=== PATIENT | male | born 1955 | race Caucasian/White ===

== ENCOUNTER 2023-04-03 12:40 | Inpatient (IN) ==
[2023-04-03 16:18] VITALS: BMI 25.8
[2023-04-03] MEDS ORDERED: LR 1,000 ML IV 1,000 ML IV ONE (16:26)
[2023-04-03 16:34] LABS: BASOPHILS # (AUTO) 0.1 X10^3/uL (0.0-0.1); BASOPHILS % (AUTO) 0.6 % (0.2-1.0); EOSINOPHILS # (AUTO) 0.3 x10^3/uL (0.0-0.2); EOSINOPHILS % (AUTO) 2.3 % (0.9-2.9); HEMOGLOBIN 13.3 g/dL (13.5-18.0); LYMPHOCYTES # (AUTO) 3.7 X10^3/uL (1.3-2.9); LYMPHOCYTES % (AUTO) 30.5 % (21.0-51.0); MEAN CORPUSCULAR HGB CONC 33.1 g/dL (33.0-35.0); MEAN CORPUSCULAR VOLUME 90.5 fL (80.0-100.0); MEAN PLATELET VOLUME 8.9 fL (7.4-11.0); MONOCYTES # (AUTO) 0.9 x10^3/uL (0.3-0.8); MONOCYTES % (AUTO) 7.1 % (0.0-13.0); NEUTROPHILS # (AUTO) 7.2 x10^3/uL (2.2-4.8); NEUTROPHILS % (AUTO) 59.5 % (42.0-75.0); PLATELET COUNT 248 X10^3/uL (150.0-450.0); RED BLOOD COUNT 4.42 X10^6/uL (4.7-6.0); RED CELL DISTRIBUTION WIDTH 13.7 % (11.6-16.5); WHITE BLOOD COUNT 12.1 X10^3/uL (3.6-10.0)
[2023-04-03] MEDS: LR 1,000 ML IV 1,000 ML IV SCH (16:35)
[2023-04-03 16:53] LABS: ALANINE AMINOTRANSFERASE 12 Units/L (12-78); ALBUMIN 3.4 g/dL (3.4-5.0); ALKALINE PHOSPHATASE 75 Units/L (46-116); ASPARTATE AMINO TRANSFERASE 13 Units/L (15-37); BLOOD UREA NITROGEN 19 mg/dL (7-18); CALCIUM 8.9 mg/dL (8.5-10.1); CHLORIDE 101 mmol/L (98-107); COR NA(FOR HYPERGLY) 141 mmol/L (136-145); CREATININE 1.07 mg/dL (0.70-1.30); GLUCOSE 205 mg/dL (65-99); POTASSIUM 3.7 mmol/L (3.5-5.1); SODIUM 138 mmol/L (136-145); TOTAL PROTEIN 6.7 g/dL (6.4-8.2); eGFR NON BLACK RACES > 60 (>60)
[2023-04-03] MEDS ORDERED: PROVENTIL NEB TX 0.083% 2.5MG/ 3ML NEB PRN (16:59)
[2023-04-03] MEDS ORDERED: CONSULT PHARMACY - POTASSIUM & MAGNESIUM XX SCH (17:00)
[2023-04-03] MEDS ORDERED: OMNIPAQUE 350 mg/mL 100 mL BTL 100 ML ONE (17:30)
[2023-04-03] MEDS ORDERED: NS 100 ML IV 100 ML ONE (17:30)
[2023-04-03] MEDS ORDERED: OMNIPAQUE 350 mg/mL 50 mL BTL 50 ML ONE (17:34)
[2023-04-03] MEDS ORDERED: NS 500 ML IV 0 ML IV ONE (19:15)
[2023-04-03] MEDS: MAGNESIUM SULFATE 1 GRAM/100 mL PREMIX 1 G/100 ML BAG IV SCH ×2 (19:19→20:12)
--- NOTE | 2023-04-03 19:25 | CT ---
HISTORYno circulation in feetSTUDYCTA AORTA WITH RUNOFFCOMPARISONTECHNIQUEMultiple axial images of the abdomen and pelvis were obtained from the mesenteric vasculature to the plantar surface of the feet both prior to and after the administration of IV contrast. 3D reconstructions were performed utilizing radial maximum intensity projection imaging. Dose reduction techniques including Automated Exposure Control (AEC) and adjustment of mA and kV were utilized.FINDINGSThe lung bases are grossly clear without effusion. There is fairly severe atherosclerosis in the left main, lad, and RCA. The liver, gallbladder, pancreas, spleen, adrenal glands, and kidneys are grossly normal. There are small nonobstructing stones in both kidneys with the largest stone on the left side measuring at 3 mm. The stomach and small bowel and appendix are normal. The large bowel loops are grossly unremarkable. Urinary bladder and prostate are normal.Abdominal aorta: There is disease in the celiac trunk but no flow limiting stenosis. There is heavy disease at the origin of the SMA but probably less than 50 percent stenosis. There is heavy plaque throughout the proximal 7 cm of the SMA. There is heavy plaque at the origin of the renal artery bilaterally, left worse than right where there appears to be approximately 65 percent stenosis.Infrarenal abdominal aorta: There is severe heterogeneous plaque in infrarenal abdominal aorta but less than 50 percent stenosis.Common iliac arteries: There is severe plaque in the common iliac arteries bilaterally, especially on the right side. The degree of stenosis is difficult to evaluate given the dense calcific plaque but is suspected to be greater than 50 percent.External iliac arteries: The severe disease continues into the external iliac arteries bilateral with areas bilaterally which appear to have greater than 50 percent stenosis. There is an area in the left external iliac with soft plaque causing high-grade stenosis.Common femoral arteries: Severe disease bilaterally.Superficial femoral arteries: Diffuse disease in the SFA bilaterally. There appears to be an extensive stent in right SFA covering approximately 11 cm length. The stent does appear to be patentPopliteal arteries: Severe multifocal disease bilaterally but the vessels are patent.Tibial vasculature: Severe disease throughout the calf bilaterally. The best flow is in the anterior tibial arteries bilaterally followed by the peroneal arteries, right better than left. The left posterior tibial artery is occluded. The flow in the right posterior tibial artery is fairly weak.IMPRESSION1. A severe multifocal disease involving large, medium, and small arteries with foci of compromise potentially in the aorta as well as the common and external iliac arteries, SFA, popliteal, and tibial arteries. 2. Approximately 65 percent stenosis in the left renal artery.Electronically signed by: Freddy Vallejo (Apr 03, 2023 19:24:07)
[2023-04-03] MEDS: ZANAFLEX PO PRN (19:45)
[2023-04-03] MEDS: VISTARIL PO SCH (21:11)
[2023-04-03] MEDS: K-RIDER 10 MEQ/NS 100 ML 10 MEQ/100 ML BAG IV SCH ×2 (21:11→22:25)
[2023-04-03] MEDS: NEURONTIN TAB 600 MG PO SCH (21:11)
[2023-04-03] MEDS: ULTRAM PO SCH (21:12)
[2023-04-03] MEDS ORDERED: NS 500 ML IV 500 ML IV PRN (21:14)
[2023-04-03] MEDS: SUBOXONE FILM SL SCH (23:42)
--- NOTE | 2023-04-03 23:48 | DR.H&P ---
H&P History & Physical for Day of: H&P Date: 04/03/23 Chief Complaint Chief Complaint: Non -healing wounds to right heel and right ankle. Allergies Allergies Allergy/AdvReac Type Severity Reaction Status Date / Time metformin Allergy Verified 07/31/18 14:33 History of Present Illness History of Present Illness: 67 year old male with history of diabetes and neuropathy with non-healing wounds to the right heel and right ankle. The patient also complains of rest pain of both legs . Pain of both calves is augmented significantly by walking. He does walk around the house but otherwise he uses a wheelchair. He needs his legs to help with activities of daily livin g. Patient with chronic pain on Suboxone . Past Medical History Past Medical History: COPD (The patient continues to smoke cigarettes and has over 50 years greater than 1 pack per day ), Coronary Artery Disease (patient gives a history of myocardial infarction in the past but they are unable to place a stent. He was treated medically since then, 2014. He denies chest pain or shortness of breath. ), CVA (Transient ischemic attacks 2019. None since then was initially treated with Plavix. No longer on Plavix. ), Diabetes, Hypertension and SD Additional Medical History: History of arterial stent placed right superficial femoral artery in the past Past Surgical History Surgical History: Ortho Surgery, Tonsillectomy and Other Family History Family Medical History: Cancer Social History Does patient currently use any type of tobacco product: Yes Have you used tobacco products in the last 12 months: Yes Type of Tobacco Use: Cigarettes How many years tobacco product used: 53 Does any household member use tobacco: Yes Alcohol Use: None Drug Use: None Medications Home Medications: Home Medications Medication Instructions Recorded Confirmed Type gabapentin 800 mg tablet 800 mg PO TID 07/31/18 04/03/23 History hydroxyzine HCl 50 mg tablet 50 mg PO Q6H PRN 07/31/18 04/03/23 History buprenorphine 2 mg-naloxone 0.5 mg 1 ea sublingual TID 04/03/23 04/03/23 History sublingual film fenofibrate nanocrystallized 145 145 mg PO QDAY 04/03/23 04/03/23 History mg tablet insulin degludec 100 unit/mL (3 60 unit subcut QDAY 04/03/23 04/03/23 History mL) subcutaneous pen (Tresiba FlexTouch U-100 insulin) pioglitazone 30 mg tablet 30 mg PO QDAY 04/03/23 04/03/23 History silodosin 8 mg capsule 8 mg PO QDAY prostatic pain 04/03/23 04/03/23 History tizanidine 4 mg tablet 4 mg PO TID PRN 04/03/23 04/03/23 History tramadol 100 mg tablet 100 mg PO TID 04/03/23 04/03/23 History Labs 04/03/23 16:23 04/03/23 16:23 Labs: 04/03/23 15:32 Foot - Right Wound Gram Stain - Final Laboratory WBC 12.1 X10^3/uL (3.6-10.0) H 04/03/23 16: RBC 4.42 X10^6/uL (4.7-6.0) L 04/03/23 16: Hgb 13.3 g/dL (13.5-18.0) L 04/03/23 16: Hct 40.0 % (42.0-54.0) L 04/03/23 16:23 MCV 90.5 fL (80.0-100.0) 04/03/23 16:23 MCH 30.0 pg (27.0-34.0) 04/03/23 16: MCHC 33.1 g/dL (33.0-35.0) 04/03/23 16: RDW 13.7 % (11.6-16.5) 04/03/23 16: Plt Count 248 X10^3/uL (150.0-450.0) 04/03/23 16: MPV 8.9 fL (7.4-11.0) 04/03/23 16:23 Neut % (Auto) 59.5 % (42.0-75.0) 04/03/23 16: Lymph % (Auto) 30.5 % (21.0-51.0) 04/03/23 16: Eddy % (Auto) 7.1 % (0.0-13.0) 04/03/23 16: Eos % (Auto) 2.3 % (0.9-2.9) 04/03/23 16: Baso % (Auto) 0.6 % (0.2-1.0) 04/03/23 16:23 Neut # (Auto) 7.2 x10^3/uL (2.2-4.8) H 04/03/23 16:23 Lymph # (Auto) 3.7 X10^3/uL (1.3-2.9) H 04/03/23 16:23 Eddy # (Auto) 0.9 x10^3/uL (0.3-0.8) H 04/03/23 16:23 Eos # (Auto) 0.3 x10^3/uL (0.0-0.2) H 04/03/23 16:23 Baso # (Auto) 0.1 X10^3/uL (0.0-0.1) 04/03/23 16:23 Absolute Nucleated RBC 0.1 /100WBC 04/03/23 16:23 Sodium 138 mmol/L (136-145) 04/03/23 16:23 Corrected Sodium 141 mmol/L (136-145) 04/03/23 16:23 Potassium 3.7 mmol/L (3.5-5.1) 04/03/23 16:23 Chloride 101 mmol/L (98-107) 04/03/23 16:23 Carbon Dioxide 28.0 mmol/L (21-32) 04/03/23 16:23 BUN 19 mg/dL (7-18) H 04/03/23 16:23 Creatinine 1.07 mg/dL (0.70-1.30) 04/03/23 16:23 Est GFR (MDRD) Af Amer > 60 (>60) 04/03/23 16:23 Est GFR (MDRD) Non-Af > 60 (>60) 04/03/23 16:23 Glucose 205 mg/dL (65-99) H 04/03/23 16:23 POC Glucose (mg/dL) 78 mg/dL (65-99) 04/03/23 19:50 Calcium 8.9 mg/dL (8.5-10.1) 04/03/23 16:23 Corrected Calcium TNP 04/03/23 16:23 Magnesium 1.7 mg/dL (2.0-2.9) L 04/03/23 16:23 Total Bilirubin 0.30 mg/dL (0.2-1.0) 04/03/23 16:23 AST 13 Units/L (15-37) L 04/03/23 16:23 ALT 12 Units/L (12-78) 04/03/23 16:23 Alkaline Phosphatase 75 Units/L (46-116) 04/03/23 16:23 Total Protein 6.7 g/dL (6.4-8.2) 04/03/23 16:23 Albumin 3.4 g/dL (3.4-5.0) 04/03/23 16:23 Globulin 3.3 g/dL (2.5-4.5) 04/03/23 16:23 Albumin/Globulin Ratio 1.0 Ratio (1.1-2.1) L 04/03/23 16:[address] angiogram shows severe disease of both common iliac arteries , eli cially on the right however it is difficult determine the extent due to calcifications but it is at least greater than 50% , high grade stenosis left external iliac artery, severe disease both common femoral arteries , patent right SFA stent, but diffuse SFA disease bilaterally , severe disease both popliteal arteries , significant stenosis trifurcation vessels bilaterally Review of Systems Constitutional: See HPI Eyes: No Symptoms Reported ENT: No Symptoms Reported Respiratory: No Symptoms Reported Cardiovascular: No Symptoms Reported Gastrointestinal: No Symptoms Reported Genitourinary: No Symptoms Reported Musculoskeletal: See HPI Skin: See HPI Neurological: Other (History of diabetic neuropathy both legs ) Physical Exam Vital Signs: Vital Signs Temperature 97.7 F Temperature 98.1 F Pulse Rate [Right Radial] 79 Pulse Rate [Right Radial] 77 Pulse Rate 76 Respiratory Rate 20 Respiratory Rate 20 Respiratory Rate 18 Respiratory Rate 20 Blood Pressure [Left Arm] 176/81 Blood Pressure [Left Arm] 160/75 O2 Sat by Pulse Oximetry 96 O2 Sat by Pulse Oximetry 95 O2 Sat by Pulse Oximetry 95 O2 Sat by Pulse Oximetry 94 Oriented: Normal, Time, Person and Place Eyes: Normal Ear: Normal Nose: Normal Throat: Normal Respiratory: Rhonchi Throughout Cardiovascular: Normal : Normal Auscultation: Bowel Sounds: Normal Palpation: Normal Tenderness: Normal Skin: Wound (noted ulcers on the right heel and right ankle. Brandon left intact. Will record narrative on these wounds tomorrow ) Musculoskeletal: Leg (both legs weak. 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 (3) Type 2 diabetes mellitus without complications: Status: Acute Plan: sliding scale insulin. last A1C at PCP was 8.1 (4) Diabetic neuropathy: Status: Acute Plan: pain control as per his usual home medications (5) Tobacco abuse: Status: Acute Plan: nicotine patch (6) Chronic ischemic heart disease, unspecified: Status: Acute Plan: not currently with shortness of breath or chest pain. Will review with Dr. Ortega. (7) History of CVA (cerebrovascular accident): Status: Acute Plan: observe (8) Chronic pain: Status: Acute Plan: Suboxone as at home (9) Chronic obstructive pulmonary disease, unspecified: Status: Acute Plan: home medications Review H&P Reviewed: Yes Patient was examined?: Yes
[2023-04-04] MEDS: VISTARIL PO SCH ×4 (02:19→20:08)
[2023-04-04] MEDS: NEURONTIN TAB 600 MG PO SCH ×3 (05:04→21:38)
[2023-04-04] MEDS: ULTRAM PO SCH ×3 (05:05→21:20)
[2023-04-04] MEDS: LR 1,000 ML IV 1,000 ML IV SCH ×2 (05:05→20:13)
[2023-04-04 05:35] LABS: MAGNESIUM 2.1 mg/dL (2.0-2.9); POTASSIUM 3.6 mmol/L (3.5-5.1)
[2023-04-04] MEDS: SUBOXONE FILM SL SCH (07:02)
[2023-04-04] MEDS: TRICOR TAB 145 MG PO SCH (09:52)
[2023-04-04] MEDS: NICOTINE PATCH TD SCH (09:52)
--- NOTE | 2023-04-04 11:12 | RAD ---
HISTORYPreopSTUDYAP chestCOMPARISONNoneFINDINGSHeart size normal with clear lungs and pleural spaces. There is no mediastinal or hilar lesion.IMPRESSIONNo active chest disease demonstrated.Electronically signed by: VANCE URBANO (Apr 04, 2023 11:11:25)
[2023-04-04] MEDS: PATIENT'S HOME MEDICATION SL SCH ×2 (14:30→21:39)
[2023-04-04] MEDS: NovoLIN R (or HumuLIN R) SC PRN ×2 (17:57→20:12)
[2023-04-04] MEDS: ZANAFLEX PO PRN (20:08)
--- NOTE | 2023-04-04 21:27 | NOTE.SOAP ---
Soap Note Note for Day of Date of Exam: 04/04/23 Subjective Data Subjective Data: Patient admitted with rest pain of both lwer extremities, diabetes, non healing wounds to the right heel. CT angiogram consistent with multi-level disease of both legs, arterial structures Objective Data Temperature: 97.8 F Pulse Rate: 84 Respiratory Rate: 20 Blood Pressure: 176/79 O2 Sat by Pulse Oximetry: 91 Objective Data: No papal pulses either ankle. Wounds to the right mid heel 1.2 cm in diameter and 5 mm deep, wound 0.4 cm to the posterior right heel. No surrounding cellulitis. Assessment Assessment: Critical ischemia arterial structures both legs Plan Plan: plan intervention of the arteries of the right leg on Thursday
--- NOTE | 2023-04-05 00:07 | EKG ---
Test Reason : "must have current EKG" Blood Pressure : */* mmHG Vent. Rate : 85 BPM Atrial Rate : 85 BPM P-R Int : 154 ms QRS Dur : 106 ms QT Int : 406 ms P-R-T Axes : 36 60 46 degrees QTc Int : 483 ms Normal sinus rhythm Prolonged QT Abnormal ECG No previous ECGs available Confirmed by Serafin Ortega ([id number]) on 04/06/2023 8:05:06 AM Referred By: Confirmed By: Serafin Ortega
[2023-04-05] MEDS: VISTARIL PO SCH ×4 (02:16→20:40)
[2023-04-05] MEDS: LR 1,000 ML IV 1,000 ML IV SCH ×3 (02:16→21:40)
[2023-04-05] MEDS: NEURONTIN TAB 600 MG PO SCH ×3 (05:19→21:40)
[2023-04-05] MEDS: ULTRAM PO SCH ×3 (05:20→21:40)
[2023-04-05] MEDS: PATIENT'S HOME MEDICATION SL SCH ×3 (05:21→21:40)
[2023-04-05] MEDS: TRICOR TAB 145 MG PO SCH (09:29)
[2023-04-05] MEDS: NICOTINE PATCH TD SCH (09:29)
[2023-04-05] MEDS: NovoLIN R (or HumuLIN R) SC PRN (11:27)
--- NOTE | 2023-04-05 22:28 | NOTE.SOAP ---
Soap Note Note for Day of Date of Exam: 04/05/23 Subjective Data Subjective Data: Right leg pain and ulcers unchanged . Objective Data Temperature: 97.8 F Pulse Rate: 85 Respiratory Rate: 20 Blood Pressure: 151/67 O2 Sat by Pulse Oximetry: 93 Objective Data: right foot cool. Ulcers unchanged right heel Assessment Assessment: critical ischemia right leg Plan Plan: Diagnostic aortogram, diagnostic arteriogram right leg, Multiple levels of arterial intervention of the right leg tomorrow to be determined by on table arteriogram and intravascular ultrasound as necessary.
[2023-04-06] MEDS: VISTARIL PO SCH ×4 (02:01→20:32)
[2023-04-06] MEDS: LR 1,000 ML IV 1,000 ML IV SCH ×3 (02:21→22:44)
[2023-04-06] MEDS: PATIENT'S HOME MEDICATION SL SCH ×3 (05:21→21:19)
[2023-04-06] MEDS: ULTRAM PO SCH ×3 (05:21→21:20)
[2023-04-06] MEDS: NEURONTIN TAB 600 MG PO SCH ×3 (05:21→21:19)
[2023-04-06] MEDS: NICOTINE PATCH TD SCH (10:06)
[2023-04-06] MEDS: TRICOR TAB 145 MG PO SCH (10:06)
[2023-04-06] MEDS ORDERED: ANCEF VIAL 1 GRAM ONE (12:45)
[2023-04-06] MEDS ORDERED: NS 1,000 ML IV 1,000 ML ONE ×2 (12:45→14:21)
[2023-04-06] MEDS ORDERED: NS 100 ML IV 100 ML ONE (12:45)
[2023-04-06] MEDS ORDERED: DIPRIVAN VIAL 40 ML ONE (12:56)
[2023-04-06] MEDS ORDERED: PRECEDEX INJ VIAL IVP ONE (12:58)
[2023-04-06] MEDS ORDERED: VERSED ONE (13:00)
[2023-04-06] MEDS ORDERED: FENTANYL VIAL INJ 100 mcg ONE (13:00)
[2023-04-06] MEDS ORDERED: PEPCID 20 MG VIAL ONE (13:03)
[2023-04-06] MEDS ORDERED: REGLAN INJ 10 MG VIAL ONE (13:03)
[2023-04-06] MEDS ORDERED: ZOFRAN INJ 4 MG VIAL ONE (13:03)
[2023-04-06] MEDS ORDERED: MARCAINE 0.5% ONE (13:12)
[2023-04-06] MEDS ORDERED: HEPARIN SODIUM IN D5W 75,000 UNITS/1,500 ML BAG ONE (13:12)
[2023-04-06] MEDS ORDERED: KETAMINE 50 MG/5 ML-NACL SYRNG ONE (13:13)
[2023-04-06] MEDS ORDERED: HEPARIN SODIUM INJ 5000 UNITS ONE (13:38)
[2023-04-06] MEDS ORDERED: ROBINUL ONE (13:39)
[2023-04-06] MEDS ORDERED: VISIPAQUE 100 ML ONE (14:03)
[2023-04-06] MEDS ORDERED: NEO-SYNEPHRINE INJ ONE (14:05)
[2023-04-06] MEDS ORDERED: APRESOLINE INJ 20 MG VIAL ONE (14:35)
[2023-04-06] MEDS ORDERED: DIPRIVAN VIAL 20 ML ONE (14:50)
--- NOTE | 2023-04-06 16:36 | OR.IMMED ---
IMMEDIATE POST-OP NOTE Immediate Post-Op Note Pre-Op Diagnosis: critical ischemia right leg. Post-Op Diagnosis: same Procedure: Diagnostic Aortogram, arteriogram right leg , atherectomy and drug coated balloon angioplasty right SFA , atherectomy and drug coated balloon angioplasty right common femoral artery, stenting right external iliac artery. Description of Procedure: dictated Surgeon/Camera Supervisor: Maty Estimated Blood Loss: 100 cc Complications: none Discharge Progress Notes: Return to floor. Begin diabetic diet, begin Xarelto and aspirin. Hopefully discharge tomorrow.
[2023-04-06] MEDS: XARELTO PO SCH (20:33)
[2023-04-06] MEDS ORDERED: TYLENOL 325 MG TAB PO PRN (21:59)
[2023-04-07] MEDS: VISTARIL PO SCH ×2 (03:04→09:34)
[2023-04-07] MEDS: NEURONTIN TAB 600 MG PO SCH (05:34)
[2023-04-07] MEDS: PATIENT'S HOME MEDICATION SL SCH (05:35)
[2023-04-07] MEDS: ULTRAM PO SCH (05:35)
[2023-04-07 05:36] VITALS: RESP 20
[2023-04-07] MEDS ORDERED: ASPIRIN EC 81 MG PO SCH (09:00)
[2023-04-07] MEDS: XARELTO PO SCH (09:34)
[2023-04-07] MEDS: TRICOR TAB 145 MG PO SCH (09:34)
[2023-04-07] MEDS: NICOTINE PATCH TD SCH (09:35)
--- NOTE | 2023-04-07 12:12 | W.DIS.FURT ---
Summary of Discharge Discharge Summary of Date Date of Exam: 04/07/23 Admission Date Date of Admission: 04/03/23 Admission Diagnosis Hospital Course: 67 year old male with significant history of past peripheral vascular disease , diabetes, significant tobacco abuse, hypertension and coronary artery disease. He has had stents placed in the right superficial femoral artery and right iliac artery in the past. C/O bilateral significant rest pain and two small ulcers of the right heel which have not been healing. One measures 1.2 cm in diameter and the other four mm in diameter. No surrounding cellulitis. He was admitted. CT angiogram show multi-level disease of the both lower extremities. He was taken to the operating Suite on April 06 we underwent atherectomy and Drug coated balloon angioplasty of the tibio-peroneal trunk, atherectomy and drug-coated balloon angioplasty of the right superficial femoral artery and placement of a right-sided external iliac artery stent. He has done well. Pain of the right leg relieved . He will be discharged home on his usual medications plus aspirin 81 mg daily by mouth and Xarelto 2.5 mg BID. He will follow up in one week with me and at that time we will schedule intervention of the left leg. Vital Signs: Vital Signs (72 hours) 04/04/23 21:27 04/05/23 22:28 04/04/23 12:00 Temperature 97.8 F 97.8 F 97.8 F Pulse Rate 84 85 Pulse Rate [Right Radial] 72 Respiratory Rate 20 20 18 Blood Pressure 176/79 151/67 Blood Pressure [Left Arm] 168/74 O2 Sat by Pulse Oximetry 91 L 93 L 92 L Oxygen Delivery Method Room Air Oxygen Flow Rate FIO2% 04/04/23 14:29 04/04/23 16:00 04/04/23 15:29 Temperature 97.8 F Pulse Rate Pulse Rate [Right Radial] 84 Respiratory Rate 18 20 20 Blood Pressure Blood Pressure [Left Arm] 176/79 O2 Sat by Pulse Oximetry 91 L Oxygen Delivery Method Room Air Oxygen Flow Rate FIO2% 04/04/23 20:00 04/04/23 19:00 04/04/23 21:20 Temperature 98.1 F Pulse Rate Pulse Rate [Right Radial] 91 H Respiratory Rate 20 21 Blood Pressure Blood Pressure [Left Arm] 179/79 O2 Sat by Pulse Oximetry 92 L Oxygen Delivery Method Room Air Room Air Oxygen Flow Rate FIO2% 04/04/23 22:20 04/05/23 00:00 04/05/23 04:00 Temperature 97.9 F 97.7 F Pulse Rate Pulse Rate [Right Radial] 81 86 Respiratory Rate 18 18 18 Blood Pressure Blood Pressure [Left Arm] 159/68 142/74 O2 Sat by Pulse Oximetry 92 L 91 L Oxygen Delivery Method Room Air Room Air Oxygen Flow Rate FIO2% 04/05/23 05:20 04/05/23 06:20 04/05/23 07:00 Temperature Pulse Rate Pulse Rate [Right Radial] Respiratory Rate 16 18 Blood Pressure Blood Pressure [Left Arm] O2 Sat by Pulse Oximetry Oxygen Delivery Method Room Air Oxygen Flow Rate FIO2% 04/05/23 08:00 04/05/23 14:57 04/05/23 12:00 Temperature 98.0 F 98.5 F Pulse Rate Pulse Rate [Right Radial] 58 L 80 Respiratory Rate 18 18 20 Blood Pressure Blood Pressure [Left Arm] 134/63 154/68 O2 Sat by Pulse Oximetry 94 L 91 L Oxygen Delivery Method Room Air Room Air Oxygen Flow Rate FIO2% 04/05/23 15:57 04/05/23 16:00 04/05/23 21:40 Temperature 97.6 F Pulse Rate Pulse Rate [Right Radial] 54 L Respiratory Rate 20 20 20 Blood Pressure Blood Pressure [Left Arm] 145/63 O2 Sat by Pulse Oximetry 95 Oxygen Delivery Method Room Air Oxygen Flow Rate FIO2% 04/05/23 20:00 04/05/23 21:20 04/05/23 19:00 Temperature 97.8 F Pulse Rate Pulse Rate [Right Radial] 85 Respiratory Rate 20 Blood Pressure Blood Pressure [Left Arm] 151/67 O2 Sat by Pulse Oximetry 93 L Oxygen Delivery Method Room Air Room Air Room Air Oxygen Flow Rate FIO2% 04/06/23 00:00 04/06/23 04:00 04/06/23 07:00 Temperature 97.9 F 97.8 F Pulse Rate Pulse Rate [Right Radial] 84 82 Respiratory Rate 20 20 Blood Pressure Blood Pressure [Left Arm] 128/69 123/57 O2 Sat by Pulse Oximetry 93 L 93 L Oxygen Delivery Method Room Air Room Air Room Air Oxygen Flow Rate FIO2% 04/06/23 12:49 04/06/23 08:00 04/06/23 12:00 Temperature 97.1 F L 97.5 F L 98.0 F Pulse Rate 81 Pulse Rate [Right Radial] 80 81 Respiratory Rate 18 20 20 Blood Pressure 153/86 Blood Pressure [Left Arm] 157/68 144/86 O2 Sat by Pulse Oximetry 92 L 93 L 92 L Oxygen Delivery Method Room Air Room Air Room Air Oxygen Flow Rate FIO2% 04/06/23 15:25 04/06/23 15:40 04/06/23 15:55 Temperature 97.5 F L 97.5 F L 97.3 F L Pulse Rate Pulse Rate [Right Radial] 75 78 77 Respiratory Rate 16 16 17 Blood Pressure Blood Pressure [Left Arm] 116/55 117/56 106/55 O2 Sat by Pulse Oximetry 88 L 93 L 88 L Oxygen Delivery Method Nasal Cannula Nasal Cannula Nasal Cannula Oxygen Flow Rate 5 5 5 FIO2% 04/06/23 16:10 04/06/23 16:25 04/06/23 17:25 Temperature 97.2 F L 97.2 F L 97.5 F L Pulse Rate Pulse Rate [Right Radial] 76 74 76 Respiratory Rate 17 16 18 Blood Pressure Blood Pressure [Left Arm] 115/57 118/59 148/68 O2 Sat by Pulse Oximetry 94 L 91 L 96 Oxygen Delivery Method Nasal Cannula Nasal Cannula Nasal Cannula Oxygen Flow Rate 5 5 5 FIO2% 04/06/23 18:25 04/06/23 21:20 04/06/23 19:25 Temperature 97.4 F L 97.6 F Pulse Rate Pulse Rate [Right Radial] 75 78 Respiratory Rate 18 18 19 Blood Pressure Blood Pressure [Left Arm] 158/68 156/69 O2 Sat by Pulse Oximetry 98 98 Oxygen Delivery Method Nasal Cannula Nasal Cannula Oxygen Flow Rate 5 FIO2% 04/06/23 20:25 04/06/23 20:00 04/06/23 19:00 Temperature 97.8 F 98 F Pulse Rate Pulse Rate [Right Radial] 88 90 Respiratory Rate 20 18 Blood Pressure Blood Pressure [Left Arm] 150/67 158/85 O2 Sat by Pulse Oximetry 97 97 Oxygen Delivery Method Nasal Cannula Nasal Cannula Nasal Cannula Oxygen Flow Rate FIO2% 04/06/23 20:56 04/06/23 20:56 04/06/23 22:20 Temperature Pulse Rate 88 Pulse Rate [Right Radial] Respiratory Rate 20 Blood Pressure Blood Pressure [Left Arm] O2 Sat by Pulse Oximetry 95 Oxygen Delivery Method Nasal Cannula Oxygen Flow Rate 3 FIO2% 32 04/06/23 22:44 04/06/23 21:10 04/07/23 00:00 Temperature 98.4 F Pulse Rate Pulse Rate [Right Radial] 88 Respiratory Rate 20 18 Blood Pressure Blood Pressure [Left Arm] 90/51 O2 Sat by Pulse Oximetry 95 96 Oxygen Delivery Method Nasal Cannula Room Air Oxygen Flow Rate FIO2% 04/06/23 23:44 04/07/23 04:00 04/07/23 05:35 Temperature 98.4 F Pulse Rate Pulse Rate [Right Radial] 78 Respiratory Rate 18 18 20 Blood Pressure Blood Pressure [Left Arm] 114/55 O2 Sat by Pulse Oximetry 94 L Oxygen Delivery Method Room Air Oxygen Flow Rate FIO2% 04/07/23 06:35 04/07/23 07:00 04/07/23 09:10 Temperature Pulse Rate Pulse Rate [Right Radial] Respiratory Rate 20 Blood Pressure Blood Pressure [Left Arm] O2 Sat by Pulse Oximetry Oxygen Delivery Method Room Air Room Air Oxygen Flow Rate 2 FIO2% 28 Labs: Laboratory Last Values WBC 12.1 X10^3/uL (3.6-10.0) H 04/03/23 16: RBC 4.42 X10^6/uL (4.7-6.0) L 04/03/23 16: Hgb 13.3 g/dL (13.5-18.0) L 04/03/23 16: Hct 40.0 % (42.0-54.0) L 04/03/23 16:23 MCV 90.5 fL (80.0-100.0) 04/03/23 16: MCH 30.0 pg (27.0-34.0) 04/03/23 16: MCHC 33.1 g/dL (33.0-35.0) 04/03/23 16: RDW 13.7 % (11.6-16.5) 04/03/23 16: Plt Count 248 X10^3/uL (150.0-450.0) 04/03/23 16: MPV 8.9 fL (7.4-11.0) 04/03/23 16:23 Neut % (Auto) 59.5 % (42.0-75.0) 04/03/23 16: Lymph % (Auto) 30.5 % (21.0-51.0) 04/03/23 16:23 [place] % (Auto) 7.1 % (0.0-13.0) 04/03/23 16:23 Eos % (Auto) 2.3 % (0.9-2.9) 04/03/23 16:23 Baso % (Auto) 0.6 % (0.2-1.0) 04/03/23 16:23 Neut # (Auto) 7.2 x10^3/uL (2.2-4.8) H 04/03/23 16:23 Lymph # (Auto) 3.7 X10^3/uL (1.3-2.9) H 04/03/23 16:23 [place] # (Auto) 0.9 x10^3/uL (0.3-0.8) H 04/03/23 16:23 Eos # (Auto) 0.3 x10^3/uL (0.0-0.2) H 04/03/23 16:23 Baso # (Auto) 0.1 X10^3/uL (0.0-0.1) 04/03/23 16:23 Absolute Nucleated RBC 0.1 /100WBC 04/03/23 16:23 Sodium 138 mmol/L (136-145) 04/03/23 16:23 Corrected Sodium 141 mmol/L (136-145) 04/03/23 16:23 Potassium 3.6 mmol/L (3.5-5.1) 04/04/23 05:05 Chloride 101 mmol/L (98-107) 04/03/23 16:23 Carbon Dioxide 28.0 mmol/L (21-32) 04/03/23 16:23 BUN 19 mg/dL (7-18) H 04/03/23 16:23 Creatinine 1.07 mg/dL (0.70-1.30) 04/03/23 16:23 Est GFR (MDRD) Af Amer > 60 (>60) 04/03/23 16:23 Est GFR (MDRD) Non-Af > 60 (>60) 04/03/23 16:23 Glucose 205 mg/dL (65-99) H 04/03/23 16:23 POC Glucose (mg/dL) 152 mg/dL (65-99) H 04/04/23 11:26 Hemoglobin A1c 7.8 % 04/03/23 16:24 Calcium 8.9 mg/dL (8.5-10.1) 04/03/23 16:23 Corrected Calcium TNP 04/03/23 16:23 Magnesium 2.1 mg/dL (2.0-2.9) 04/04/23 05:05 Total Bilirubin 0.30 mg/dL (0.2-1.0) 04/03/23 16:23 AST 13 Units/L (15-37) L 04/03/23 16:23 ALT 12 Units/L (12-78) 04/03/23 16:23 Alkaline Phosphatase 75 Units/L (46-116) 04/03/23 16:23 Total Protein 6.7 g/dL (6.4-8.2) 04/03/23 16: Albumin 3.4 g/dL (3.4-5.0) 04/03/23 16:23 Globulin 3.3 g/dL (2.5-4.5) 04/03/23 16:23 Albumin/Globulin Ratio 1.0 Ratio (1.1-2.1) L 04/03/23 16:23 Reason For Visit: PVD RIGHT LOWER EXTREMITY Discharge Date Discharge Date: 04/07/23 Discharge Diagnosis All Active Problems (Updated 04/03/23 @ 23:44 by José Rutledge) Chronic obstructive pulmonary disease, unspecified (Acute) Chronic pain (Acute) History of CVA (cerebrovascular accident) (Acute) Chronic ischemic heart disease, unspecified (Acute) Tobacco abuse (Acute) Diabetic neuropathy (Acute) Type 2 diabetes mellitus without complications (Acute) Atherosclerosis of [place] arteries of extremities with rest pain, left leg (Acute) Atherosclerosis of [place] arteries of extremities with rest pain, right leg (Acute) Abdominal pain (Acute) Pancreatitis (Acute) Plan of Treatment: Continue with present treatment and follow up plan. Pt is to keep follow up appointment as instructed and take medications as ordered. Discharge Medications Discharge Medications: metformin Allergy (Verified 07/31/18 14:33) CONTINUE taking the following medications buprenorphine 2 mg-naloxone 0.5 mg sublingual film 1 ea sublingual TID 04/03/23 [History] fenofibrate nanocrystallized 145 mg tablet 145 mg PO QDAY 04/03/23 [History] insulin degludec 100 unit/mL (3 mL) subcutaneous pen (Tresiba FlexTouch U-100 insulin) 60 unit subcut QDAY 04/03/23 [History] pioglitazone 30 mg tablet 30 mg PO QDAY 04/03/23 [History] silodosin 8 mg capsule 8 mg PO QDAY prostatic pain 04/03/23 [History] tizanidine 4 mg tablet 4 mg PO TID PRN 04/03/23 [History] tramadol 100 mg tablet 100 mg PO TID 04/03/23 [History] Discharge Disposition Assessment: see hospital course Discharge Plan Discharge Plan Hospital Course: 67 year old male with significant history of past peripheral vascular disease , diabetes, significant tobacco abuse, hypertension and coronary artery disease. He has had stents placed in the right superficial femoral artery and right iliac artery in the past. C/O bilateral significant rest pain and two small ulcers of the right heel which have not been healing. One measures 1.2 cm in diameter and the other four mm in diameter. No surrounding cellulitis. He was admitted. CT angiogram show multi-level disease of the both lower extremities. He was taken to the operating Suite on April 06 we underwent atherectomy and Drug coated balloon angioplasty of the tibio-peroneal trunk, atherectomy and drug-coated balloon angioplasty of the right superficial femoral artery and placement of a right-sided external iliac artery stent. He has done well. Pain of the right leg relieved . He will be discharged home on his usual medications plus aspirin 81 mg daily by mouth and Xarelto 2.5 mg BID. He will follow up in one week with me and at that time we will schedule intervention of the left leg. Patient Disposition: HOME HEALTH SERVICE Condition: Stable Health Concerns: Post Hospitalization: new medications and changes needed to prevent readmission or further decline. Pt educated and given instructions on all concerns. Care Plan Goals: Problem: Pain/Alteration in Comfort Goal: Improve/ Resolve Pain; Achieve Pain Tolerance Instructions: Take pain medications as prescribed. Contact your primary care provider if your pain is unrelieved or worsens. Follow up with primary care provider as directed. Plan of Treatment: Continue with present treatment and follow up plan. Pt is to keep follow up appointment as instructed and take medications as ordered. Assessment: see hospital course Prescription drug monitoring program results: PDMP reviewed with concerns identified Prescriptions: New aspirin 81 mg capsule 81 mg PO QDAY Qty: 240 0RF Xarelto 2.5 mg tablet 2.5 mg PO BID Qty: 180 0RF Continued hydroxyzine HCl 50 mg Tablet 50 mg PO Q6H PRN gabapentin 800 mg Tablet 800 mg PO TID tizanidine 4 mg tablet 4 mg PO TID PRN pioglitazone 30 mg tablet 30 mg PO QDAY fenofibrate nanocrystallized 145 mg tablet 145 mg PO QDAY silodosin 8 mg capsule 8 mg PO QDAY buprenorphine-naloxone 2-0.5 mg film 1 ea sublingual TID insulin degludec [Tresiba FlexTouch U-100] 100 unit/mL (3 mL) insulin pen 60 unit SUBCUT QDAY tramadol 100 mg tablet 100 mg PO TID Follow ups/Referrals Follow ups/Referrals: José Rutledge [STAFF PHYSICIAN] - 04/14/23 3:30 pm Instructions Instructions: Health Risks of Smoking, Smoking Tobacco Information, Adult, Atherosclerosis, Endovascular Therapy for Peripheral Vascular Disease, Care After, COPD and Physical Activity Stand Alone Forms: Post Hospital Follow Up Care
[2023-04-07 12:54] VITALS: BP 166/74; PULSE 76; TEMP 98.2; O2SAT 94
--- NOTE | 2023-04-07 20:15 | DR.OPNOTE ---
OP NOTE Pre-Op Diagnosis: critical ischemia right leg with non-healing ulcers to the right heel x 2 Post-Op Diagnosis: same Procedure Date Date Of Procedure: 04/06/23 Procedure: PROCEDURE: DIAGNOSTIC AORTOGRAM, DIAGNOSTIC ARTERIOGRAM RIGHT LEG , ATHERECTOMY AND DRUG COATED BALLOON ANGIOPLASTY RIGHT SUPERFICIAL FEMORAL ARTERY INSIDE THE PREVIOUSLY PLACED STENTS , ATHERECTOMY AND DRUG COATED BALLOON ANGIOPLASTY RIGHT COMMON FEMORAL ARTERY ,DRUG COATED STENTING OF THE RIGHT EXTERNAL ILIAC ARTERY NARRATIVE : The patient was taken to the operative suite and placed in the supine position. The left groin and entire right leg were prepped and draped in sterile fashion. The patient was given intravenous sedation supervised by myself. Time out for the procedure obtained. Ultrasound used to identify the left femoral artery and the skin overlying it infiltrated with 0.5% Marcaine. Ultrasound then used to guide puncture of the left femoral artery and a 0.012 inch guide wire was placed. Incision made over the guide wire at the skin edge with a # 11 knife blade and a micro sheath placed over the guide wire into the left femoral artery The small guidewire exchanged for a 0.035 inch Advantage glide wire and the micro sheath exchanged for a 5 Fr vascular sheath. Patient given 5000 units of intravenous heparin. Omni catheter was placed over the guide wire into the aorta and diagnostic aortogram carried out with the power injector showing a severely diseased distal aorta which is still patent, right common iliac artery stent which is patent , severe disease of the right external iliac artery, severe disease of the right common femoral artery, complete occlusion of the proximal right superficial artery and occluded stents in the mid and distal right superficial femoral artery . There was 2 vessel runoff of the right leg via the right anterior tibial and right peroneal arteries . Omni catheter was used to steer the guide wire down the right common iliac artery to the distal right external iliac artery . Omni catheter was exchanged for a Stanley catheter and sequential arteriograms carried out of the right lower extremity showing the above findings .The 5 Fr sheath in the left groin then exchanged for a 7 Fr destination sheath which was parked in right distal external iliac artery. Stanley catheter and the guide wire were used to traverse the arteries of the right leg with some difficulty ultimately ending in the right peroneal artery . This was selective catheterization. 0.035 inch wire removed and exchanged for a 0.014 inch wire. Over this wire we placed the [place] atherectomy device and performed atherectomy of the entire superficial femoral artery including through the stents ,and of the right common femoral artery . At this point we performed drug coated balloon dilatation of the right superficial femoral arteries using a distal 5mmx 150 mm drug coated balloon distally , a 6mmx 150 mm drug coated balloon proximally treating the entire stented area of the right superficial femoral artery. The occluded proximal superficial femoral artery and the common femoral artery were balloon dilated with a 6mm x 200 mm drug coated balloon. The destination sheath was pulled back into the right common iliac artery and over the wire we placed an Maren 7mmx 80 mm drug coated stent . This stent was balloon dilated with a 6mm [employer] Leeroy balloon. At the completion of this a follow up arteriogram showed excellent results. All wires and devices removed. The 7 Fr sheath was pulled further back into the aorta and a 0.035 inch wire placed. The destination sheath exchanged for an Angioseal device used to close the puncture of the left femoral artery. .Dressing applied to the left groin. The patient taken to same day surgery in good condition. Type of Anesthesia: Local (0.5% Marcaine) Anesthesia Comment: plus MAC Findings: severe disease left superficial femoral artery, severe disease left common femoral artery, near complete occlusion of the right external iliac artery Type of Fluids Used:: Lactated Ringers Total Amount of Fluid Infused:: 400 cc Urine output: 800 cc EBL: 100 cc Hardware: Maren 7mmx 80 mm Maren drug coated stent Complications:: none Needle/Sponge Count:: correct Disposition/Condition: Pt. tolerated procedure without difficulty. Taken to the floor in stable condition.
== END 2023-04-07 12:30 | disposition home health service (06) | DRG 272 ==
LOC: MED/SURG 14:34
PROVIDERS: ADMIT Surgery; ATTEND Surgery

== ENCOUNTER 2024-10-28 20:07 | Inpatient (IN) ==
[2024-10-28 23:19] VITALS: BMI 25.9
[2024-10-28] MEDS: LR 1,000 ML IV 1,000 ML IV SCH (23:50)
[2024-10-29] MEDS: LOVENOX INJ 80 MG SYR SC ONE ×2 (01:02→07:01)
[2024-10-29] MEDS: NORCO 5/325 MG TAB PO PRN (05:28)
[2024-10-29] MEDS ORDERED: SUBOXONE TAB SL SCH (06:00)
[2024-10-29] MEDS: ASPIRIN EC 81 MG PO SCH (08:46)
[2024-10-29] MEDS: LOVENOX INJ 80 MG SYR SC SCH (08:48)
[2024-10-29] MEDS: FARXIGA PO SCH (10:22)
[2024-10-29] MEDS: COZAAR PO SCH (10:22)
[2024-10-29] MEDS: BUSPAR PO SCH (10:22)
[2024-10-29] MEDS: NEURONTIN CAP 400 MG PO SCH (10:23)
[2024-10-29] MEDS: ULTRAM PO SCH (10:24)
[2024-10-29] MEDS: LOPRESSOR TAB 25 MG PO SCH (10:25)
--- NOTE | 2024-10-29 12:13 | DR.H&P ---
H&P History & Physical for Day of: H&P Date: 10/28/24 Chief Complaint Chief Complaint: severe rest pain right foot History of Present Illness History of Present Illness: This is a 69-year-old male seen by me in March 2023 with an ischemic right leg. At that time he had had previous intervention including a right iliac artery stent and a stent in the superficial femoral artery . I saw him he at that time for rest pain of the right leg and he had nonhealing wounds to the right heel and required atherectomy and drug-coated balloon angioplasty of the rigjht posterior tibilal- peroneal trunk artery, atherectomy and drug coated balloon angioplasty of the right superficial femoral artery and placement of a right sided external iliac artery stent. He is a heavy smoker. He never came to see me in follow-up. He presented now with severe pain of the right foot at the hospital in [facility] where CT angiogram shows complete occlusion of the common femoral artery and superficial femoral artery on the right side. Since I have seen him last he has had coronary bypass grafting x 3 in March 2024. Prior to that he had multiple coronary stents placed. He is diabetic with previous history of narcotic addiction treatged with Saboxone. He is no longer on Saboxone. He was transfered to me for care of his vascualr problem . His right heel wounds are healed . Past Medical History Past Medical History: COPD (The patient continues to smoke cigarettes and has over 50 years greater than 1 pack per day ), Coronary Artery Disease (patient gives a history of myocardial infarction in the past .He denies chest pain or shortness of breath. ), CVA (Transient ischemic attacks 2019. None since then was initially treated with Plavix. No longer on Plavix. ), Diabetes, Hypertension and [place] Additional Medical History: History of arterial stent placed right superficial femoral artery in the past and right iliac artery Past Surgical History Surgical History: Angioplasty/Stents, CABG/Valve Surgery and Tonsillectomy Family History Family Medical History: Cancer Social History Does patient currently use any type of tobacco product: Yes Type of Tobacco Use: Cigarettes How many years tobacco product used: 44 Packs per day or dips/chews per day: one to two Does any household member use tobacco: Yes Alcohol Use: None Drug Use: None Risks, benefits, and alternatives of opioids discussed: Yes Medications Home Medications: Home Medications Medication Instructions Recorded Confirmed Type gabapentin 800 mg tablet 800 mg PO TID 07/31/18 10/29/24 History hydroxyzine HCl 50 mg tablet 50 mg PO Q6H PRN 07/31/18 10/29/24 History insulin degludec 100 unit/mL (3 30 unit subcut QDAY 04/03/23 10/29/24 History mL) subcutaneous pen (Tresiba FlexTouch U-100 insulin) atorvastatin 40 mg tablet 40 mg PO HS 10/29/24 10/29/24 History buspirone 5 mg tablet 5 mg PO BID 10/29/24 10/29/24 History empagliflozin 10 mg tablet 10 mg PO DAILY 10/29/24 10/29/24 History (Jardiance) gabapentin 800 mg tablet 800 mg PO TID 10/29/24 10/29/24 History insulin degludec 100 unit/mL 30 unit subcut DAILY 10/29/24 10/29/24 History subcutaneous solution (Tresiba U-100 Insulin) losartan 25 mg tablet 25 mg PO DAILY 10/29/24 10/29/24 History metoprolol tartrate 25 mg tablet 25 mg PO BID 10/29/24 10/29/24 History tramadol 50 mg tablet 100 mg PO BID PRN 10/29/24 10/29/24 History trazodone 50 mg tablet 50 mg PO HS 10/29/24 10/29/24 History zileuton 600 mg tablet,extended 2 tab PO BID 10/29/24 10/29/24 History release 12hr mphase Allergies Allergies Allergy/AdvReac Type Severity Reaction Status Date / Time metformin Allergy Verified 07/31/18 14:33 Labs Labs: see labs from [facility] Review of Systems Constitutional: See HPI Eyes: No Symptoms Reported ENT: No Symptoms Reported Respiratory: No Symptoms Reported Cardiovascular: No Symptoms Reported (right foot rest pain) Gastrointestinal: No Symptoms Reported Genitourinary: No Symptoms Reported Musculoskeletal: See HPI Skin: Ecchymosis (right dorsal foot) Neurological: No Symptoms Reported Physical Exam Vital Signs: Vital Signs Temperature 98.3 F Temperature 97.9 F Pulse Rate [Right Brachial] 106 Pulse Rate [Right Brachial] 99 Respiratory Rate 20 Respiratory Rate 19 Respiratory Rate 18 Respiratory Rate 18 Respiratory Rate 20 Respiratory Rate 22 Respiratory Rate 16 Blood Pressure [Right Arm] 129/72 Blood Pressure [Left Arm] 142/71 O2 Sat by Pulse Oximetry 99 O2 Sat by Pulse Oximetry 95 Oriented: Normal, Time, Person and Place Eyes: Normal Ear: Normal Nose: Normal Throat: Normal Respiratory: Clear Throughout Cardiovascular: Normal and Other (Pale cool right foot. No palpable femoral pulse in the right groin Ortho right ankle. Left leg has palpable distal pulses) : Normal Auscultation: Bowel Sounds: Normal Palpation: Normal Tenderness: Normal Skin: Other (Median sternotomy incision. Ecchymosis and tenderness of the right foot. Moves right toes as well as the left) Musculoskeletal: Normal Psychiatric: Normal Mood Description: Anxious Affect: Anxious Speech Pattern: Clear and Appropriate Assessment/Plan (1) Atherosclerosis of [place] arteries of extremities with rest pain, right leg: Status: Acute Plan: Patient admitted for pain control, anticoagulation, will require arterial intervention of the right leg. (2) Chronic ischemic heart disease, unspecified: Status: Acute Plan: Stable following CABG in March 2024 (3) Tobacco abuse: Status: Acute Plan: Treat with nicotine patch (4) Type 2 diabetes mellitus without complications: Status: Acute Plan: 1800-calorie ADA diet and sliding scale insulin (5) Chronic obstructive pulmonary disease, unspecified: Status: Acute Plan: Stable (6) History of CVA (cerebrovascular accident): Status: Acute Plan: stable Review H&P Reviewed: Yes Patient was examined?: Yes
[2024-10-29] MEDS: NEURONTIN TAB 600 MG PO SCH (16:25)
[2024-10-29] MEDS: DESYREL PO SCH (21:14)
[2024-10-29] MEDS: LIPITOR TAB 40 MG PO SCH (21:14)
[2024-10-29] MEDS: SNACK - Diabetic Appropriate PO SCH (21:25)
--- NOTE | 2024-10-29 21:40 | NOTE.SOAP ---
Soap Note Note for Day of Date of Exam: 10/29/24 Subjective Data Subjective Data: Patient presented with acute ischemia of the right leg. History of intervention over no. Recent coronary artery bypass grafting. Objective Data Temperature: 98.0 F Pulse Rate: 87 Respiratory Rate: 18 Blood Pressure: 120/60 O2 Sat by Pulse Oximetry: 96 Objective Data: Ecchymosis less of the dorsum right foot. Right foot warm. Still complaining of pain. Can move toes better right foot Assessment Assessment: Acute ischemia right leg, probable thrombosis of arteries and previous placed stents of the right common femoral and superficial femoral arteries Plan Plan: Continue therapeutic Lovenox. Plan to take to the operating suite on Thursday to place an EKOS thrombolytic catheter.
[2024-10-30] MEDS: TRESIBA U-100 INSULIN SC SCH (08:29)
[2024-10-30] MEDS: NICOTINE PATCH TD SCH (08:36)
[2024-10-30] MEDS: NovoLIN R (or HumuLIN R) SUBCUT PRN (16:14)
[2024-10-30] MEDS: HIBICLENS WASH EXT ONE (22:58)
--- NOTE | 2024-10-30 23:56 | NOTE.SOAP ---
Soap Note Note for Day of Date of Exam: 10/30/24 Subjective Data Subjective Data: Hospital day #2 after admission for acute ischemia of the right leg with thrombosis of the right common femoral and right superficial femoral arteries. Currently treated with therapeutic Lovenox. Right foot is now warm unlike at admission. Ecchymosis is better of the dorsum of the right foot but he still complains of some pain of the right foot. Objective Data Temperature: 97.9 F Pulse Rate: 84 Respiratory Rate: 18 Blood Pressure: 140/62 O2 Sat by Pulse Oximetry: 92 Objective Data: Right foot warm. Ecchymosis improved dorsum right foot. Assessment Assessment: Critical ischemia right leg probable thrombosis/occlusion right common femoral and right superficial femoral artery Plan Plan: 2 OR suite in the morning for possible mechanical thrombectomy, possible placement of EKOS thrombolytic catheter for tPA thrombolysis directed
[2024-10-31] MEDS: DILAUDID INJ IVP PRN (01:48)
--- NOTE | 2024-10-31 02:34 | RAD ---
PROCEDURE: Chest X-ray 1 View.HISTORY: pre op; .TECHNIQUE: AP portable view.COMPARISON: 04/04/2023.TECHNICAL QUALITY: Satisfactory.FINDINGS:Normal-sized heart with previous sternotomy.Mediastinum and hilar regions show no masses or lymphadenopathy.Normal central vascularity.No pulmonary consolidation, masses, pleural fluid, or pneumothorax.No acute bony abnormality.IMPRESSION:No evidence of active cardiopulmonary disease.THIS IS AN ELECTRONICALLY VERIFIED FINAL REPORT10/31/2024 2:30 AM - Electronically signed by Mukesh Moulton MD
[2024-10-31 05:26] LABS: BASOPHILS # (AUTO) 0.1 X10^3/uL (0.0-0.1); BASOPHILS % (AUTO) 0.8 % (0.2-1.0); EOSINOPHILS # (AUTO) 0.1 x10^3/uL (0.0-0.2); EOSINOPHILS % (AUTO) 0.8 % (0.9-2.9); HEMATOCRIT 39.1 % (42.0-54.0); HEMOGLOBIN 12.7 g/dL (13.5-18.0); LYMPHOCYTES # (AUTO) 1.1 X10^3/uL (1.3-2.9); LYMPHOCYTES % (AUTO) 11.2 % (21.0-51.0); MEAN CORPUSCULAR HEMOGLOBIN 26.7 pg (27.0-34.0); MEAN CORPUSCULAR HGB CONC 32.5 g/dL (33.0-35.0); MEAN CORPUSCULAR VOLUME 82.3 fL (80.0-100.0); MONOCYTES # (AUTO) 1.1 x10^3/uL (0.3-0.8); MONOCYTES % (AUTO) 10.4 % (0.0-13.0); NEUTROPHILS # (AUTO) 7.9 x10^3/uL (2.2-4.8); NEUTROPHILS % (AUTO) 76.8 % (42.0-75.0); PLATELET COUNT 254 X10^3/uL (150.0-450.0); RED BLOOD COUNT 4.75 X10^6/uL (4.7-6.0); RED CELL DISTRIBUTION WIDTH 17.7 % (11.6-16.5); WHITE BLOOD COUNT 10.2 X10^3/uL (3.6-10.0)
[2024-10-31 05:35] LABS: ALANINE AMINOTRANSFERASE 13 Units/L (12-78); ALBUMIN 3.2 g/dL (3.4-5.0); ALKALINE PHOSPHATASE 94 Units/L (46-116); ASPARTATE AMINO TRANSFERASE 20 Units/L (15-37); BLOOD UREA NITROGEN 17 mg/dL (7-18); CALCIUM 8.6 mg/dL (8.5-10.1); CARBON DIOXIDE 31.1 mmol/L (21-32); CHLORIDE 103 mmol/L (98-107); COR CA(FOR HYPOALB) 9.2 mg/dL (8.5-10.1); CREATININE 1.47 mg/dL (0.70-1.30); GLUCOSE 71 mg/dL (65-99); POTASSIUM 4.1 mmol/L (3.5-5.1); SODIUM 139 mmol/L (136-145); TOTAL PROTEIN 7.2 g/dL (6.4-8.2); eGFR NON BLACK RACES 51 (>60)
[2024-10-31] MEDS: NS 1,000 ML IV 1,000 ML ONE ×3 (07:20→09:40)
[2024-10-31] MEDS: REGLAN INJ 10 MG VIAL ONE (07:27)
[2024-10-31] MEDS: ZOFRAN INJ 4 MG VIAL ONE (07:27)
[2024-10-31] MEDS: FENTANYL VIAL INJ 100 mcg ONE (07:27)
[2024-10-31] MEDS: VERSED ONE (07:27)
[2024-10-31] MEDS: PEPCID 20 MG VIAL ONE (07:27)
[2024-10-31] MEDS: PRECEDEX INJ VIAL ONE (07:28)
[2024-10-31] MEDS: DECADRON INJ ONE (07:28)
[2024-10-31] MEDS: OFIRMEV IV 1000 MG VIAL 1,000 MG/100 ML VIAL IV ONE (07:28)
[2024-10-31] MEDS: DIPRIVAN VIAL 20 ML ONE (07:28)
[2024-10-31] MEDS: DUONEB 0.5 MG/3 MG (3 mL) NEB ONE (07:41)
[2024-10-31] MEDS: D5 1/2 NS 1,000 ML 1,000 ML IV ONE (07:49)
[2024-10-31] MEDS: D50W ABBOJECT SYR ONE (07:50)
[2024-10-31] MEDS: ZOFRAN INJ 4 MG VIAL IVP PRN (07:52)
[2024-10-31] MEDS: PEPCID 20 MG VIAL IVP PRN (07:54)
[2024-10-31] MEDS: HEPARIN SODIUM INJ 5000 UNITS ONE ×2 (07:55→09:29)
[2024-10-31] MEDS: NS 100 ML IV 100 ML ONE (07:58)
[2024-10-31] MEDS: ANCEF VIAL 1 GRAM ONE (07:58)
[2024-10-31] MEDS: REGLAN INJ 10 MG VIAL IVP PRN (07:59)
[2024-10-31] MEDS: ANCEF VIAL 1 GRAM IV PRN (08:02)
[2024-10-31] MEDS: VERSED IVP PRN (08:03)
[2024-10-31] MEDS: XYLOCAINE 2 % (PLAIN) INJ PRN (08:06)
[2024-10-31] MEDS: KETAMINE HCL IV PRN (08:07)
[2024-10-31] MEDS: DIPRIVAN VIAL 200 ML IVP PRN (08:07)
[2024-10-31] MEDS: PRECEDEX INJ VIAL IVP PRN (08:07)
[2024-10-31] MEDS: OFIRMEV IV 1000 MG VIAL 1,000 MG/100 ML VIAL IV PRN (08:18)
[2024-10-31] MEDS: DECADRON INJ IVP PRN (08:26)
[2024-10-31] MEDS: VISIPAQUE 50 ML ONE (08:28)
[2024-10-31] MEDS: VISIPAQUE 100 ML ONE ×2 (08:28)
[2024-10-31] MEDS: MARCAINE 0.5% ONE (08:28)
[2024-10-31] MEDS: HEPARIN 1,000 UNIT/500 ML-NS 3,000 UNIT/1,500 ML IV.SOLN ONE (08:28)
[2024-10-31] MEDS: ROBINUL ONE (08:30)
--- NOTE | 2024-10-31 08:38 | EKG ---
Test Reason : pt in PACU Blood Pressure : */* mmHG Vent. Rate : 80 BPM Atrial Rate : 80 BPM P-R Int : 148 ms QRS Dur : 110 ms QT Int : 418 ms P-R-T Axes : 30 86 86 degrees QTc Int : 482 ms Normal sinus rhythm Prolonged QT Abnormal ECG When compared with ECG of 04-APR-2023 23:48, Nonspecific T wave abnormality now evident in Lateral leads Confirmed by Som Peña MD ([id number]) on 10/31/2024 9:45:24 AM Referred By: Confirmed By: Som Peña MD
[2024-10-31] MEDS: EPHEDRINE SULFATE INJ ONE (08:48)
[2024-10-31] MEDS: EPHEDRINE SULFATE INJ IVP PRN (08:50)
[2024-10-31] MEDS: NEO-SYNEPHRINE INJ ONE (08:57)
[2024-10-31] MEDS: NEO-SYNEPHRINE INJ IVP PRN (09:08)
[2024-10-31] MEDS: ROBINUL IVP PRN (09:09)
[2024-10-31] MEDS: TORADOL 30 MG VIAL ONE (09:17)
[2024-10-31] MEDS: TORADOL 30 MG VIAL IVP PRN (09:18)
[2024-10-31] MEDS: FENTANYL VIAL INJ 100 mcg IVP PRN (09:20)
[2024-10-31] MEDS: ACTIVASE CATHFLO ONE (09:39)
[2024-10-31] MEDS: ACTIVASE CATHFLO 12 MG in NS 250 ML IV 228 ML IV SCH (09:40)
[2024-10-31] MEDS: ATIVAN INJ 2 MG VIAL IVP ONE (10:35)
[2024-10-31 16:43] LABS: LYMPHOCYTES # (AUTO) 0.4 X10^3/uL (1.3-2.9); MEAN PLATELET VOLUME 9.1 fL (7.4-11.0); MONOCYTES # (AUTO) 0.3 x10^3/uL (0.3-0.8); NEUTROPHILS % (AUTO) 91.4 % (42.0-75.0)
[2024-10-31 16:49] LABS: BASOPHILS # (AUTO) 0.1 X10^3/uL (0.0-0.1); BASOPHILS % (AUTO) 0.7 % (0.2-1.0); HEMATOCRIT 36.4 % (42.0-54.0); HEMOGLOBIN 11.8 g/dL (13.5-18.0); LYMPHOCYTES % (AUTO) 4.2 % (21.0-51.0); MEAN CORPUSCULAR HEMOGLOBIN 26.8 pg (27.0-34.0); MEAN CORPUSCULAR HGB CONC 32.5 g/dL (33.0-35.0); MEAN CORPUSCULAR VOLUME 82.7 fL (80.0-100.0); MONOCYTES % (AUTO) 3.7 % (0.0-13.0); PLATELET COUNT 217 X10^3/uL (150.0-450.0); RED BLOOD COUNT 4.41 X10^6/uL (4.7-6.0); RED CELL DISTRIBUTION WIDTH 17.5 % (11.6-16.5); WHITE BLOOD COUNT 8.7 X10^3/uL (3.6-10.0)
[2024-10-31] MEDS: NS 500 ML IV 500 ML IV SCH ×2 (17:09→19:13)
[2024-10-31 17:23] LABS: PLATELET MORPHOLOGY COMMENT NORMAL (NORMAL)
[2024-10-31 17:24] LABS: ANISOCYTOSIS SLIGHT
--- NOTE | 2024-10-31 18:09 | OR.IMMED ---
IMMEDIATE POST-OP NOTE Immediate Post-Op Note Date of surgery/procedure: 10/31/24 Pre-Op Diagnosis: Critical limb threatening ischemia right leg, thrombosis right superficial femoral artery and common femoral artery Post-Op Diagnosis: Same, see findings Procedure: Aortogram, arteriogram right leg, approach from antegrade and retrograde approaches. Placement of EKOS catheter across completely occluded right superficial femoral artery and common femoral artery into the iliac artery stents on the right side. Patient with severe disease of the anterior tibial and posterior tibial arteries, for 24 hours of directed thrombolysis right leg, reevaluate, patient probably will need additional arterial intervention right leg Surgeon/Eligibility Supervisor: José Rutledge MD, FACS Findings: Completely occluded right common femoral and right superficial femoral artery. Severe disease all runoff vessels of the right leg. Estimated Blood Loss: 100 cc Complications: none Progress Notes: Patient taken to the CCU for overnight thrombolysis and careful observation.
[2024-10-31] MEDS: ACTIVASE CATHFLO 12 MG in NS 250 ML IV 228 ML INTRACATH ONE (19:57)
[2024-10-31] MEDS: ATIVAN INJ 2 MG VIAL IVP PRN (22:13)
[2024-10-31 22:23] LABS: BASOPHILS % (AUTO) 0.2 % (0.2-1.0); HEMATOCRIT 36.4 % (42.0-54.0); HEMOGLOBIN 11.6 g/dL (13.5-18.0); LYMPHOCYTES # (AUTO) 0.6 X10^3/uL (1.3-2.9); LYMPHOCYTES % (AUTO) 4.6 % (21.0-51.0); MEAN CORPUSCULAR HEMOGLOBIN 26.4 pg (27.0-34.0); MEAN CORPUSCULAR HGB CONC 31.9 g/dL (33.0-35.0); MEAN CORPUSCULAR VOLUME 82.6 fL (80.0-100.0); MEAN PLATELET VOLUME 8.8 fL (7.4-11.0); MONOCYTES # (AUTO) 0.9 x10^3/uL (0.3-0.8); MONOCYTES % (AUTO) 7.7 % (0.0-13.0); NEUTROPHILS # (AUTO) 10.8 x10^3/uL (2.2-4.8); NEUTROPHILS % (AUTO) 87.5 % (42.0-75.0); PLATELET COUNT 205 X10^3/uL (150.0-450.0); RED BLOOD COUNT 4.41 X10^6/uL (4.7-6.0); WHITE BLOOD COUNT 12.3 X10^3/uL (3.6-10.0)
--- NOTE | 2024-10-31 23:05 | NOTE.SOAP ---
Soap Note Note for Day of Date of Exam: 10/31/24 Subjective Data Subjective Data: Status post placement of right leg EKOS thrombolytic catheter from the anterior tibial artery all the way to the iliac stents in the right side. Patient with complete occlusion of the common femoral artery and superficial femoral artery. Patient has had infusion of tPA for nearly 13 hours. He received 24 hours. Right foot remains cool to touch but able to move all of his toes well. Pain of right foot is improved Objective Data Temperature: 98.0 F Pulse Rate: 91 Respiratory Rate: 20 Blood Pressure: 140/61 O2 Sat by Pulse Oximetry: 95 Objective Data: Right foot remains cool. Able to move all toes. Pain is improved. Hemoglobin is 11.6, platelet count 205,000, creatinine 1.47, white blood cell count 12,300 Assessment Assessment: Critical ischemia of the right leg. Status post placement of EKOS thrombolytic catheter. Currently undergoing directed thrombolysis of the right leg arteries. Plan Plan: Reassess in the morning to decide if he needs return to the operating suite or whether we can put this off until a later date for more definitive treatment.
[2024-11-01 04:01] LABS: BASOPHILS # (AUTO) 0.1 X10^3/uL (0.0-0.1); BASOPHILS % (AUTO) 0.4 % (0.2-1.0); HEMATOCRIT 35.7 % (42.0-54.0); HEMOGLOBIN 11.4 g/dL (13.5-18.0); LYMPHOCYTES # (AUTO) 1.3 X10^3/uL (1.3-2.9); LYMPHOCYTES % (AUTO) 10.6 % (21.0-51.0); MEAN CORPUSCULAR HEMOGLOBIN 26.3 pg (27.0-34.0); MEAN CORPUSCULAR HGB CONC 31.8 g/dL (33.0-35.0); MEAN CORPUSCULAR VOLUME 82.8 fL (80.0-100.0); MEAN PLATELET VOLUME 9.2 fL (7.4-11.0); MONOCYTES # (AUTO) 1.4 x10^3/uL (0.3-0.8); NEUTROPHILS # (AUTO) 9.3 x10^3/uL (2.2-4.8); PLATELET COUNT 211 X10^3/uL (150.0-450.0); RED BLOOD COUNT 4.32 X10^6/uL (4.7-6.0); RED CELL DISTRIBUTION WIDTH 17.4 % (11.6-16.5); WHITE BLOOD COUNT 12.1 X10^3/uL (3.6-10.0)
--- NOTE | 2024-11-01 09:52 | DR.OPNOTE ---
OP NOTE Pre-Op Diagnosis: Critical limb threatening ischemia right leg, thrombosis right common femor Post-Op Diagnosis: Same, see findings Procedure Date Date Of Procedure: 10/31/24 Procedure: PROCEDURE: Diagnostic aortogram, diagnostic arteriogram right leg, antegrade and retrograde approach to arteries of the right leg ultimately placing a EKOS thrombolytic catheter across the superficial femoral artery occlusion and the common femoral artery occlusion of the right leg NARRATIVE: The patient was taken to the operative suite and placed in the supine position. The left groin and entire right leg were prepped and draped in sterile fashion. Patient was given intravenous sedation supervised by myself. Timeout for the procedure obtained. Ultrasound used to identify the femoral artery in the left groin and the skin overlying it infiltrated with 0.5% Marcaine. Ultrasound used to guide puncture of the left femoral artery and a 0.012 inch guidewire placed. Incision made over the guidewire at the skin edge with a #11 knife blade and the micro sheath placed over the guidewire into the femoral artery. Small wire exchanged for a 0.035 inch a Advantage Glidewire and the micro sheath exchanged for a 5 [place] vascular sheath. Patient given 5000 units of intravenous heparin. Omni catheter placed over the guidewire into the aorta and power injector used to perform aortogram showing normal aorta , patent right external iliac artery stents , occlusion of the right common femoral artery . The Omni catheter was then used to direct the guidewire down the right common iliac artery to the distal right external iliac artery. The Omni catheter exchanged for a [place] catheter and sequential arteriograms performed of the right leg showing occlusion of the right common femoral artery and right superficial femoral artery with reconstitution of the popliteal artery with three-vessel runoff but all 3 vessels are diseased. I could not get the [place] catheter over the wire to go beyond the common femoral artery as it kept flipping into the aorta. Therefore we elected to approach this from the ankle. The anterior tibial artery at the right ankle identified with ultrasound and the skin overlying infiltrated with 0.5% Marcaine. Ultrasound used to guide puncture of the right anterior tibial artery and a 0.012 inch guidewire placed. Incision made over the guidewire with a #11 knife blade and a micro sheath placed over the guidewire into the anterior tibial artery. Arteriogram confirmed they were indeed in the anterior tibial artery with evidence of significant disease of the proximal anterior tibial artery. Right popliteal artery was patent. Right superficial femoral artery was occluded as was the common femoral artery. With some difficulty the wire was placed all the way into the right iliac artery stents and arteriogram confirmed that we were in the lumen of the iliac artery on the right side. Over the wire from the ankle we placed the outer catheter of the EKOS thrombolytic catheter, removed the wire and placed the inner cannula. Patient was bolused through the catheter with 3 mg of tPA. tPA was started at 1 mg an hour which will run for 24 hours. Coolant of 30 cc/h started through the coolant port and the patient will be given therapeutic Lovenox subcutaneously. Patient will be reevaluated periodically. Taken to the critical care unit in stable condition. Type of Anesthesia: Local (0.5% Marcaine 0.5% Marcaine) Anesthesia Comment: Plus MAC Findings: Completely occluded right common femoral and right superficial a rteries with reconstitution of the popliteal artery with disease of all 3 runoff vessels to the right ankle. Patient required antegrade and retrograde approaches. Type of Fluids Used:: Lactated Ringers Total Amount of Fluid Infused:: 750 cc Urine output: 800 cc EBL: 100 cc Complications:: None Needle/Sponge Count:: Correct Disposition/Condition: Pt. tolerated procedure without difficulty. Taken to CCU in stable condition.
[2024-11-01] MEDS: NS 1,000 ML IV 1,000 ML ONE (09:54)
[2024-11-01 10:28] LABS: BASOPHILS % (AUTO) 0.3 % (0.2-1.0); EOSINOPHILS % (AUTO) 0.1 % (0.9-2.9); HEMATOCRIT 34.3 % (42.0-54.0); HEMOGLOBIN 11.1 g/dL (13.5-18.0); LYMPHOCYTES # (AUTO) 1.7 X10^3/uL (1.3-2.9); LYMPHOCYTES % (AUTO) 15.9 % (21.0-51.0); MEAN CORPUSCULAR HEMOGLOBIN 26.7 pg (27.0-34.0); MEAN CORPUSCULAR HGB CONC 32.4 g/dL (33.0-35.0); MEAN CORPUSCULAR VOLUME 82.5 fL (80.0-100.0); MEAN PLATELET VOLUME 8.8 fL (7.4-11.0); MONOCYTES # (AUTO) 1.2 x10^3/uL (0.3-0.8); MONOCYTES % (AUTO) 10.8 % (0.0-13.0); NEUTROPHILS % (AUTO) 72.9 % (42.0-75.0); PLATELET COUNT 201 X10^3/uL (150.0-450.0); RED BLOOD COUNT 4.16 X10^6/uL (4.7-6.0); RED CELL DISTRIBUTION WIDTH 17.4 % (11.6-16.5)
[2024-11-01 16:25] VITALS: TEMP 98.4
[2024-11-01 18:14] VITALS: BP 193/82; PULSE 76; RESP 0; O2SAT 97
--- NOTE | 2024-11-02 12:16 | W.DIS.FURT ---
Summary of Discharge Discharge Summary of Date Date of Exam: 11/01/24 Admission Date Date of Admission: 10/28/24 Admission Diagnosis Hospital Course: This is a 69-year-old male who was seen by me originally over 18 months ago and he had stenting of the right external iliac artery as well as atherectomy and drug-coated balloon angioplasty right superficial femoral artery. He however never came to see me in follow-up. He has continued to smoke heavily. He presented with acute ischemia of the right leg at the hospital in [place], [place]. He was started on therapeutic Lovenox and taken to the operating suite on October 31, 2024 where underwent placement EKOS catheter from the posterior tibial artery on the right side all the way across the densely diseased right common femoral artery. He underwent thrombolysis for 24 hours. He had improvement of the leg down to the ankle. Right Foot is less painful. He is to be discharged home and we will plan further intervention to include probable right femoral endarterectomy and patch angioplasty and possible additional treatment of the arteries of the right leg. Noted to have significant disease of the trifurcation level vessels as well. Vital Signs: Vital Signs (72 hours) 10/30/24 23:56 10/31/24 23:05 10/30/24 13:30 Temperature 97.9 F 98.0 F Pulse Rate 84 91 H Pulse Rate [Right Brachial] Respiratory Rate 18 20 18 Blood Pressure 140/62 140/61 Blood Pressure [Right Arm] O2 Sat by Pulse Oximetry 92 L 95 Oxygen Delivery Method Oxygen Flow Rate FIO2% 10/30/24 14:56 10/30/24 14:30 10/30/24 15:56 Temperature Pulse Rate Pulse Rate [Right Brachial] Respiratory Rate 20 20 19 Blood Pressure Blood Pressure [Right Arm] O2 Sat by Pulse Oximetry Oxygen Delivery Method Oxygen Flow Rate FIO2% 10/30/24 16:00 10/30/24 19:00 10/30/24 19:46 Temperature 98 F 98.1 F Pulse Rate Pulse Rate [Right Brachial] 66 86 Respiratory Rate 18 18 Blood Pressure Blood Pressure [Right Arm] 165/69 169/99 O2 Sat by Pulse Oximetry 92 L 93 L Oxygen Delivery Method Room Air Room Air Room Air Oxygen Flow Rate FIO2% 10/30/24 21:13 10/30/24 22:13 10/30/24 23:29 Temperature 97.9 F Pulse Rate Pulse Rate [Right Brachial] 84 Respiratory Rate 18 20 18 Blood Pressure Blood Pressure [Right Arm] 140/62 O2 Sat by Pulse Oximetry 92 L Oxygen Delivery Method Room Air Oxygen Flow Rate FIO2% 10/30/24 23:57 10/31/24 01:48 10/31/24 00:57 Temperature Pulse Rate Pulse Rate [Right Brachial] Respiratory Rate 18 20 17 Blood Pressure Blood Pressure [Right Arm] O2 Sat by Pulse Oximetry Oxygen Delivery Method Oxygen Flow Rate FIO2% 10/31/24 02:17 10/31/24 04:00 10/31/24 04:21 Temperature 98.1 F Pulse Rate Pulse Rate [Right Brachial] 85 Respiratory Rate 18 19 Blood Pressure Blood Pressure [Right Arm] 123/56 O2 Sat by Pulse Oximetry 90 L Oxygen Delivery Method Room Air Nasal Cannula Oxygen Flow Rate 2 FIO2% 28 10/31/24 05:22 10/31/24 06:20 10/31/24 07:38 Temperature Pulse Rate 81 Pulse Rate [Right Brachial] Respiratory Rate 19 21 16 Blood Pressure 144/66 Blood Pressure [Right Arm] O2 Sat by Pulse Oximetry Oxygen Delivery Method Room Air Oxygen Flow Rate FIO2% 10/31/24 07:00 10/31/24 08:00 10/31/24 10:00 Temperature 99.3 F 100.8 F H Pulse Rate Pulse Rate [Right Brachial] 80 86 Respiratory Rate 18 20 Blood Pressure Blood Pressure [Right Arm] 111/52 112/57 O2 Sat by Pulse Oximetry 93 L 90 L Oxygen Delivery Method Room Air Room Air Nasal Cannula Oxygen Flow Rate 2 FIO2% 10/31/24 10:15 10/31/24 10:30 10/31/24 10:45 Temperature 99.8 F H Pulse Rate Pulse Rate [Right Brachial] 90 90 93 H Respiratory Rate 20 20 20 Blood Pressure Blood Pressure [Right Arm] 110/60 106/62 125/60 O2 Sat by Pulse Oximetry 90 L 88 L 90 L Oxygen Delivery Method Nasal Cannula Nasal Cannula Nasal Cannula Oxygen Flow Rate 2 2 2 FIO2% 10/31/24 10:45 10/31/24 11:15 10/31/24 11:00 Temperature 98.6 F Pulse Rate Pulse Rate [Right Brachial] 93 H Respiratory Rate 19 Blood Pressure Blood Pressure [Right Arm] 118/58 O2 Sat by Pulse Oximetry 94 L Oxygen Delivery Method Nasal Cannula Nasal Cannula Nasal Cannula Oxygen Flow Rate 2 4 4 FIO2% 28 36 10/31/24 11:40 10/31/24 12:00 10/31/24 13:00 Temperature 98.5 F Pulse Rate Pulse Rate [Right Brachial] 85 79 Respiratory Rate 20 18 20 Blood Pressure Blood Pressure [Right Arm] 137/62 129/60 O2 Sat by Pulse Oximetry 100 99 Oxygen Delivery Method Nasal Cannula Nasal Cannula Oxygen Flow Rate 4 4 FIO2% 10/31/24 12:40 10/31/24 13:30 10/31/24 13:52 Temperature Pulse Rate Pulse Rate [Right Brachial] Respiratory Rate 20 20 Blood Pressure Blood Pressure [Right Arm] O2 Sat by Pulse Oximetry Oxygen Delivery Method Nasal Cannula Oxygen Flow Rate 4 FIO2% 36 10/31/24 14:30 10/31/24 14:00 10/31/24 15:00 Temperature Pulse Rate Pulse Rate [Right Brachial] 77 74 Respiratory Rate 20 20 20 Blood Pressure Blood Pressure [Right Arm] 132/58 135/60 O2 Sat by Pulse Oximetry 97 97 Oxygen Delivery Method Nasal Cannula Nasal Cannula Oxygen Flow Rate 2 2 FIO2% 10/31/24 16:00 10/31/24 18:09 10/31/24 19:00 Temperature 97.8 F Pulse Rate Pulse Rate [Right Brachial] 68 Respiratory Rate 20 20 Blood Pressure Blood Pressure [Right Arm] 140/65 O2 Sat by Pulse Oximetry 97 Oxygen Delivery Method Nasal Cannula Nasal Cannula Oxygen Flow Rate 2 2 FIO2% 10/31/24 18:55 10/31/24 18:55 10/31/24 19:02 Temperature Pulse Rate 83 Pulse Rate [Right Brachial] Respiratory Rate 33 H Blood Pressure 174/81 177/78 Blood Pressure [Right Arm] O2 Sat by Pulse Oximetry 99 Oxygen Delivery Method Nasal Cannula Oxygen Flow Rate 2 FIO2% 10/31/24 19:02 10/31/24 19:09 10/31/24 20:00 Temperature Pulse Rate 81 83 Pulse Rate [Right Brachial] Respiratory Rate 25 H 21 33 H Blood Pressure Blood Pressure [Right Arm] O2 Sat by Pulse Oximetry 98 96 Oxygen Delivery Method Nasal Cannula Nasal Cannula Oxygen Flow Rate 2 2 FIO2% 10/31/24 20:00 10/31/24 21:08 10/31/24 21:02 Temperature 98.0 F Pulse Rate 92 H Pulse Rate [Right Brachial] Respiratory Rate 24 31 H Blood Pressure 185/79 Blood Pressure [Right Arm] O2 Sat by Pulse Oximetry 98 Oxygen Delivery Method Nasal Cannula Oxygen Flow Rate 2 FIO2% 10/31/24 21:04 10/31/24 22:00 10/31/24 22:00 Temperature Pulse Rate 95 H Pulse Rate [Right Brachial] Respiratory Rate 29 H Blood Pressure 163/72 140/61 Blood Pressure [Right Arm] O2 Sat by Pulse Oximetry 98 Oxygen Delivery Method Nasal Cannula Oxygen Flow Rate 2 FIO2% 10/31/24 22:08 10/31/24 22:12 10/31/24 22:12 Temperature Pulse Rate 91 H Pulse Rate [Right Brachial] Respiratory Rate 20 Blood Pressure Blood Pressure [Right Arm] O2 Sat by Pulse Oximetry 95 Oxygen Delivery Method Nasal Cannula Oxygen Flow Rate 2 FIO2% 28 10/31/24 23:02 10/31/24 23:02 10/31/24 23:32 Temperature Pulse Rate 96 H Pulse Rate [Right Brachial] Respiratory Rate 31 H 27 H Blood Pressure 150/63 Blood Pressure [Right Arm] O2 Sat by Pulse Oximetry 97 Oxygen Delivery Method Nasal Cannula Oxygen Flow Rate 2 FIO2% 11/01/24 00:00 11/01/24 00:00 11/01/24 00:02 Temperature 99.5 F Pulse Rate 86 Pulse Rate [Right Brachial] Respiratory Rate 24 21 Blood Pressure 149/64 Blood Pressure [Right Arm] O2 Sat by Pulse Oximetry 97 Oxygen Delivery Method Nasal Cannula Oxygen Flow Rate 2 FIO2% 11/01/24 01:00 11/01/24 01:00 11/01/24 02:10 Temperature Pulse Rate 84 Pulse Rate [Right Brachial] Respiratory Rate 22 27 H Blood Pressure 142/62 Blood Pressure [Right Arm] O2 Sat by Pulse Oximetry 98 Oxygen Delivery Method Nasal Cannula Oxygen Flow Rate 2 FIO2% 11/01/24 02:00 11/01/24 02:00 11/01/24 02:40 Temperature Pulse Rate 89 Pulse Rate [Right Brachial] Respiratory Rate 32 H 25 H Blood Pressure 155/72 Blood Pressure [Right Arm] O2 Sat by Pulse Oximetry 100 Oxygen Delivery Method Nasal Cannula Oxygen Flow Rate 2 FIO2% 11/01/24 03:00 11/01/24 03:00 10/31/24 20:25 Temperature Pulse Rate 80 Pulse Rate [Right Brachial] Respiratory Rate 21 Blood Pressure 164/70 Blood Pressure [Right Arm] O2 Sat by Pulse Oximetry 99 Oxygen Delivery Method Nasal Cannula Nasal Cannula Oxygen Flow Rate 2 2 FIO2% 28 11/01/24 04:00 11/01/24 04:00 11/01/24 05:00 Temperature 98.8 F Pulse Rate 84 Pulse Rate [Right Brachial] Respiratory Rate 21 Blood Pressure 167/68 161/72 Blood Pressure [Right Arm] O2 Sat by Pulse Oximetry 100 Oxygen Delivery Method Nasal Cannula Oxygen Flow Rate 2 FIO2% 11/01/24 05:00 11/01/24 06:00 11/01/24 06:00 Temperature Pulse Rate 82 74 Pulse Rate [Right Brachial] Respiratory Rate 18 26 H Blood Pressure 151/66 Blood Pressure [Right Arm] O2 Sat by Pulse Oximetry 100 100 Oxygen Delivery Method Nasal Cannula Nasal Cannula Oxygen Flow Rate 2 2 FIO2% 11/01/24 07:00 11/01/24 07:01 11/01/24 07:01 Temperature Pulse Rate 74 77 Pulse Rate [Right Brachial] Respiratory Rate 26 H 36 H Blood Pressure 156/68 Blood Pressure [Right Arm] O2 Sat by Pulse Oximetry 100 100 Oxygen Delivery Method Oxygen Flow Rate FIO2% 11/01/24 07:00 11/01/24 08:34 11/01/24 08:00 Temperature 98.4 F Pulse Rate 68 Pulse Rate [Right Brachial] Respiratory Rate 20 23 Blood Pressure Blood Pressure [Right Arm] O2 Sat by Pulse Oximetry 100 Oxygen Delivery Method Nasal Cannula Oxygen Flow Rate 2 FIO2% 11/01/24 08:00 11/01/24 09:00 11/01/24 09:00 Temperature Pulse Rate 75 Pulse Rate [Right Brachial] Respiratory Rate 21 Blood Pressure 150/65 160/65 Blood Pressure [Right Arm] O2 Sat by Pulse Oximetry 99 Oxygen Delivery Method Oxygen Flow Rate FIO2% 11/01/24 09:34 11/01/24 10:00 11/01/24 10:00 Temperature Pulse Rate 64 Pulse Rate [Right Brachial] Respiratory Rate 16 23 Blood Pressure 143/63 Blood Pressure [Right Arm] O2 Sat by Pulse Oximetry 99 Oxygen Delivery Method Oxygen Flow Rate FIO2% 11/01/24 11:00 11/01/24 11:00 11/01/24 12:00 Temperature 97.9 F Pulse Rate 69 74 Pulse Rate [Right Brachial] Respiratory Rate 26 H 24 Blood Pressure 160/72 Blood Pressure [Right Arm] O2 Sat by Pulse Oximetry 99 99 Oxygen Delivery Method Oxygen Flow Rate FIO2% 11/01/24 13:00 11/01/24 14:00 11/01/24 14:11 Temperature Pulse Rate 72 72 Pulse Rate [Right Brachial] Respiratory Rate 24 Blood Pressure 151/70 Blood Pressure [Right Arm] O2 Sat by Pulse Oximetry 100 100 Oxygen Delivery Method Oxygen Flow Rate FIO2% 11/01/24 14:11 11/01/24 16:13 11/01/24 15:00 Temperature Pulse Rate 78 73 Pulse Rate [Right Brachial] Respiratory Rate 20 Blood Pressure Blood Pressure [Right Arm] O2 Sat by Pulse Oximetry 99 100 Oxygen Delivery Method Oxygen Flow Rate FIO2% 11/01/24 15:00 11/01/24 15:00 11/01/24 15:00 Temperature Pulse Rate 73 Pulse Rate [Right Brachial] Respiratory Rate Blood Pressure 173/74 173/74 Blood Pressure [Right Arm] O2 Sat by Pulse Oximetry 100 Oxygen Delivery Method Oxygen Flow Rate FIO2% 11/01/24 16:00 11/01/24 16:01 11/01/24 16:06 Temperature Pulse Rate 74 78 Pulse Rate [Right Brachial] Respiratory Rate Blood Pressure 117/58 Blood Pressure [Right Arm] O2 Sat by Pulse Oximetry 100 100 Oxygen Delivery Method Oxygen Flow Rate FIO2% 11/01/24 16:06 11/01/24 16:24 11/01/24 17:00 Temperature 98.4 F Pulse Rate 77 75 Pulse Rate [Right Brachial] Respiratory Rate 0 L Blood Pressure Blood Pressure [Right Arm] O2 Sat by Pulse Oximetry 99 99 Oxygen Delivery Method Oxygen Flow Rate FIO2% 11/01/24 17:00 11/01/24 17:00 11/01/24 17:03 Temperature Pulse Rate Pulse Rate [Right Brachial] Respiratory Rate Blood Pressure 186/82 186/82 183/81 Blood Pressure [Right Arm] O2 Sat by Pulse Oximetry Oxygen Delivery Method Oxygen Flow Rate FIO2% 11/01/24 17:03 11/01/24 17:03 11/01/24 17:03 Temperature Pulse Rate 72 Pulse Rate [Right Brachial] Respiratory Rate 0 L Blood Pressure 183/81 183/81 Blood Pressure [Right Arm] O2 Sat by Pulse Oximetry 100 Oxygen Delivery Method Oxygen Flow Rate FIO2% 11/01/24 18:00 11/01/24 18:00 Temperature Pulse Rate 76 Pulse Rate [Right Brachial] Respiratory Rate Blood Pressure 193/82 Blood Pressure [Right Arm] O2 Sat by Pulse Oximetry 97 Oxygen Delivery Method Oxygen Flow Rate FIO2% Labs: Laboratory Last Values WBC 11.0 X10^3/uL (3.6-10.0) H 11/01/24 10:20 RBC 4.16 X10^6/uL (4.7-6.0) L 11/01/24 10:20 Hgb 11.1 g/dL (13.5-18.0) L 11/01/24 10:20 Hct 34.3 % (42.0-54.0) L 11/01/24 10:20 MCV 82.5 fL (80.0-100.0) 11/01/24 10:20 MCH 26.7 pg (27.0-34.0) L 11/01/24 10:20 MCHC 32.4 g/dL (33.0-35.0) L 11/01/24 10:20 RDW 17.4 % (11.6-16.5) H 11/01/24 10:20 Plt Count 201 X10^3/uL (150.0-450.0) 11/01/24 10:20 Plt Count Comment Adequate (ADEQUATE) 10/31/24 16:32 MPV 8.8 fL (7.4-11.0) 11/01/24 10:20 Neut % (Auto) 72.9 % (42.0-75.0) 11/01/24 10:20 Lymph % (Auto) 15.9 % (21.0-51.0) L 11/01/24 10:20 Pepin % (Auto) 10.8 % (0.0-13.0) 11/01/24 10:20 Eos % (Auto) 0.1 % (0.9-2.9) L 11/01/24 10:20 Baso % (Auto) 0.3 % (0.2-1.0) 11/01/24 10:20 Neut # (Auto) 8.0 x10^3/uL (2.2-4.8) H 11/01/24 10:20 Lymph # (Auto) 1.7 X10^3/uL (1.3-2.9) 11/01/24 10:20 Pepin # (Auto) 1.2 x10^3/uL (0.3-0.8) H 11/01/24 10:20 Eos # (Auto) 0.0 x10^3/uL (0.0-0.2) 11/01/24 10:20 Baso # (Auto) 0.0 X10^3/uL (0.0-0.1) 11/01/24 10:20 Absolute Nucleated RBC 0.0 /100WBC 11/01/24 10:20 Total Counted 100 10/31/24 16:32 Neutrophils % (Manual) 93 % (39-76) H 10/31/24 16:32 Lymphocytes % (Manual) 3 % (13-43) L 10/31/24 16:32 Monocytes % (Manual) 4 % (4-9) 10/31/24 16:32 Plt Morphology Comment Normal (NORMAL) 10/31/24 16:32 RBC Morphology Abnormal (NORMAL) 10/31/24 16:32 Anisocytosis Slight A 10/31/24 16:32 APTT 66.3 SECONDS (22.9-36.5) H 11/01/24 10:20 PTT Comment - 11/01/24 10:20 Fibrinogen 354 mg/dL (239-489) 11/01/24 10:20 Sodium 139 mmol/L (136-145) 10/31/24 05:15 Corrected Sodium TNP 10/31/24 05:15 Potassium 4.1 mmol/L (3.5-5.1) 10/31/24 05:15 Chloride 103 mmol/L (98-107) 10/31/24 05:15 Carbon Dioxide 31.1 mmol/L (21-32) 10/31/24 05:15 BUN 17 mg/dL (7-18) 10/31/24 05:15 Creatinine 1.47 mg/dL (0.70-1.30) H 10/31/24 05:15 Est GFR (MDRD) Af Amer > 60 (>60) 10/31/24 05:15 Est GFR (MDRD) Non-Af 51 (>60) L 10/31/24 05:15 Glucose 71 mg/dL (65-99) 10/31/24 05:15 Calcium 8.6 mg/dL (8.5-10.1) 10/31/24 05:15 Corrected Calcium 9.2 mg/dL (8.5-10.1) 10/31/24 05:15 Total Bilirubin 0.30 mg/dL (0.2-1.0) 10/31/24 05:15 AST 20 Units/L (15-37) 10/31/24 05:15 ALT 13 Units/L (12-78) 10/31/24 05:15 Alkaline Phosphatase 94 Units/L (46-116) 10/31/24 05:15 Total Protein 7.2 g/dL (6.4-8.2) 10/31/24 05:15 Albumin 3.2 g/dL (3.4-5.0) L 10/31/24 05:15 Globulin 4.0 g/dL (2.5-4.5) 10/31/24 05:15 Albumin/Globulin Ratio 0.8 Ratio (1.1-2.1) L 10/31/24 05:15 Reason For Visit: RLE CRITICAL ISCHEMIA Discharge Date Discharge Date: 11/01/24 Discharge Diagnosis All Active Problems (Updated 04/03/23 @ 23:44 by José Rutledge) Chronic obstructive pulmonary disease, unspecified (Acute) Chronic pain (Acute) History of CVA (cerebrovascular accident) (Acute) Chronic ischemic heart disease, unspecified (Acute) Tobacco abuse (Acute) Diabetic neuropathy (Acute) Type 2 diabetes mellitus without complications (Acute) Atherosclerosis of [place] arteries of extremities with rest pain, left leg (Acute) Atherosclerosis of [place] arteries of extremities with rest pain, right leg (Acute) Abdominal pain (Acute) Pancreatitis (Acute) Plan of Treatment: Continue with present treatment and follow up plan. Pt is to keep follow up appointment as instructed and take medications as ordered. Discharge Medications Discharge Medications: metformin Allergy (Verified 07/31/18 14:33) CONTINUE taking the following medications atorvastatin 40 mg tablet 40 mg PO HS 10/29/24 [History] buspirone 5 mg tablet 5 mg PO BID 10/29/24 [History] empagliflozin 10 mg tablet (Jardiance) 10 mg PO DAILY 10/29/24 [History] gabapentin 800 mg tablet 800 mg PO TID 10/29/24 [History] insulin degludec 100 unit/mL subcutaneous solution (Tresiba U-100 Insulin) 30 unit subcut DAILY 10/29/24 [History] losartan 25 mg tablet 25 mg PO DAILY 10/29/24 [History] metoprolol tartrate 25 mg tablet 25 mg PO BID 10/29/24 [History] tramadol 50 mg tablet 100 mg PO BID PRN 10/29/24 [History] trazodone 50 mg tablet 50 mg PO HS 10/29/24 [History] zileuton 600 mg tablet,extended release 12hr mphase 2 tab PO BID 10/29/24 [History] aspirin , 81 mg po daily Discharge Disposition Assessment: see hospital course Discharge Plan Discharge Plan Hospital Course: This is a 69-year-old male who was seen by me originally over 18 months ago and he had stenting of the right external iliac artery as well as atherectomy and drug-coated balloon angioplasty right superficial femoral artery. He however never came to see me in follow-up. He has continued to smoke heavily. He presented with acute ischemia of the right leg at the hospital in [place], [place] [facility] [place]. He was started on therapeutic Lovenox and taken to the operating suite on October 31, 2024 where underwent placement EKOS catheter from the posterior tibial artery on the right side all the way across the densely diseased right common femoral artery. He underwent thrombolysis for 24 hours. He had improvement of the leg down to the ankle. Right Foot is less painful. He is to be discharged home and we will plan further intervention to include probable right femoral endarterectomy and patch angioplasty and possible additional treatment of the arteries of the right leg. Noted to have significant disease of the trifurcation level vessels as well. Patient Disposition: 01 HOME, SELF-CARE Condition: Stable Health Concerns: Post Hospitalization: new medications and changes needed to prevent readmission or further decline. Pt educated and given instructions on all concerns. Care Plan Goals: Problem: Pain/Alteration in Comfort Goal: Improve/ Resolve Pain; Achieve Pain Tolerance Instructions: Take pain medications as prescribed. Contact your primary care provider if your pain is unrelieved or worsens. Follow up with primary care provider as directed. Plan of Treatment: Continue with present treatment and follow up plan. Pt is to keep follow up appointment as instructed and take medications as ordered. Assessment: see hospital course Prescription drug monitoring program results: PDMP reviewed with concerns identified Prescriptions: No Action hydroxyzine HCl 50 mg Tablet 50 mg PO Q6H PRN gabapentin 800 mg Tablet 800 mg PO TID atorvastatin 40 mg Tablet 40 mg PO HS buspirone 5 mg Tablet 5 mg PO BID trazodone 50 mg Tablet 50 mg PO HS tramadol 50 mg Tablet 100 mg PO BID PRN gabapentin 800 mg Tablet 800 mg PO TID losartan 25 mg Tablet 25 mg PO DAILY metoprolol tartrate 25 mg Tablet 25 mg PO BID zileuton 600 mg Tablet, Er Multiphase 12 Hr 2 tab PO BID Jardiance 10 mg Tablet 10 mg PO DAILY insulin degludec [Tresiba U-100 Insulin] 100 unit/mL Solution 30 unit SUBCUT DAILY insulin degludec [Tresiba FlexTouch U-100] 100 unit/mL (3 mL) insulin pen 30 unit SUBCUT QDAY aspirin 81 mg capsule 81 mg PO QDAY Qty: 240 0RF Follow ups/Referrals Follow ups/Referrals: José Rutledge [Primary Care Provider] - 1 WEEK Instructions Instructions: Endovascular Therapy for Peripheral Vascular Disease: What to Know After Stand Alone Forms: Excuse From Work or School, Find Help Web Site, Post Hospital Follow Up Care
== END 2024-11-01 18:19 | disposition home or self-care (01) | DRG 279 ==
LOC: MED/SURG → ICU 10-31 11:08
PROVIDERS: ADMIT Surgery; ATTEND Surgery
DX: Z99.81 Dependence on supplemental oxygen; E11.9 Type 2 diabetes mellitus without complications; J44.9 Chronic obstructive pulmonary disease, unspecified; I10 Essential (primary) hypertension; I70.221 Atherosclerosis of native arteries of extremities with rest pain, right leg; R79.1 Abnormal coagulation profile; Z86.73 Personal history of transient ischemic attack (TIA), and cerebral infarction without residual deficits; I25.2 Old myocardial infarction; Z59.86 Financial insecurity; R94.31 Abnormal electrocardiogram [ECG] [EKG]; R26.89 Other abnormalities of gait and mobility; I25.810 Atherosclerosis of coronary artery bypass graft(s) without angina pectoris; Z01.810 Encounter for preprocedural cardiovascular examination; Z59.41 Food insecurity; Z72.0 Tobacco use

== ENCOUNTER 2024-11-08 10:27 | Observation (INO) ==
[2024-11-08] MEDS: NOZIN NASAL SANITIZER TP ONE (10:59)
[2024-11-08] MEDS: DUONEB 0.5 MG/3 MG (3 mL) NEB ONE (10:59)
[2024-11-08] MEDS: NS 1,000 ML IV 1,000 ML ONE (11:00)
[2024-11-08] MEDS: NovoLIN R (or HumuLIN R) SUBCUT PRN (11:08)
[2024-11-08] MEDS ORDERED: NovoLIN R (or HumuLIN R) ONE (11:19)
[2024-11-08] MEDS: NS IV PRN (12:00)
[2024-11-08] MEDS: FENTANYL VIAL INJ 100 mcg ONE ×2 (12:30→15:27)
[2024-11-08] MEDS: VERSED ONE (12:30)
[2024-11-08] MEDS: DIPRIVAN VIAL 20 ML ONE ×4 (12:30→17:15)
[2024-11-08] MEDS: HEPARIN SODIUM INJ 5000 UNITS ONE ×2 (12:30→15:56)
[2024-11-08] MEDS: PRECEDEX INJ VIAL ONE (12:30)
[2024-11-08] MEDS: PEPCID 20 MG VIAL ONE (12:31)
[2024-11-08] MEDS: ZOFRAN INJ 4 MG VIAL ONE (12:31)
[2024-11-08] MEDS: PEPCID 20 MG VIAL IVP PRN (14:00)
[2024-11-08] MEDS: ZOFRAN INJ 4 MG VIAL IVP PRN (14:00)
[2024-11-08] MEDS: ANCEF VIAL 1 GRAM ONE (14:15)
[2024-11-08] MEDS: ANCEF VIAL 1 GRAM IV PRN (14:24)
[2024-11-08] MEDS ORDERED: KETAMINE HCL ONE ×2 (14:29→18:02)
[2024-11-08] MEDS: VERSED IVP PRN (14:33)
[2024-11-08] MEDS: DIPRIVAN IVP PRN (14:34)
[2024-11-08] MEDS: KETAMINE HCL IV PRN (14:35)
[2024-11-08] MEDS: PRECEDEX INJ VIAL IVP PRN (14:35)
[2024-11-08] MEDS: VISIPAQUE 100 ML ONE (14:45)
[2024-11-08] MEDS: MARCAINE 0.5% ONE (14:45)
[2024-11-08] MEDS: NS 100 ML IV 100 ML ONE (14:45)
[2024-11-08] MEDS: HEPARIN 1,000 UNIT/500 ML-NS 3,000 UNIT/1,500 ML IV.SOLN ONE (14:45)
[2024-11-08] MEDS: FENTANYL VIAL INJ 100 mcg IVP PRN (15:47)
[2024-11-08] MEDS: NORMODYNE INJ 20 MG VIAL ONE (15:53)
[2024-11-08] MEDS: NORMODYNE INJ 20 MG VIAL IVP PRN (16:45)
[2024-11-08] MEDS: APRESOLINE INJ 20 MG VIAL ONE (16:48)
[2024-11-08] MEDS: APRESOLINE INJ 20 MG VIAL IVP PRN (16:58)
[2024-11-08] MEDS ORDERED: HEPARIN SODIUM INJ 5000 UNITS IVP PRN (17:16)
--- NOTE | 2024-11-08 18:01 | OR.IMMED ---
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 Post-Op Diagnosis: Same, see findings Procedure: Aortogram, arteriogram right lower extremity, drug-coated balloon angioplasty of the right superficial femoral artery, angioplasty of the right anterior tibial artery right common femoral endarterectomy and patch angioplasty Description of Procedure: Dictated Surgeon/Digital Project Coordinator: José Rutledge MD, FACS Findings: Occlusion of the right superficial femoral artery with reconstitution of the popliteal artery at the ankle joint with runoff mainly via right anterior tibial artery, severe disease of the right common femoral artery requiring endarterectomy and patch angioplasty in open fashion Estimated Blood Loss: 250cc Complications: none Progress Notes: Patient to be admitted for observation and monitoring of the right leg.
[2024-11-08] MEDS ORDERED: XYLOCAINE 2 % (PLAIN) ONE (18:02)
[2024-11-08] MEDS ORDERED: PRECEDEX INJ VIAL ONE (18:02)
[2024-11-08] MEDS: DILAUDID INJ IVP PRN (19:36)
[2024-11-08 19:41] VITALS: BMI 25.0
[2024-11-08] MEDS: SNACK - Diabetic Appropriate PO SCH (20:00)
[2024-11-08] MEDS: LOPRESSOR TAB 25 MG PO SCH (20:49)
[2024-11-08] MEDS: BUSPAR PO SCH (20:49)
[2024-11-08] MEDS: XARELTO PO SCH (20:49)
[2024-11-08] MEDS: DESYREL PO SCH (20:49)
[2024-11-08] MEDS: LIPITOR TAB 40 MG PO SCH (20:49)
[2024-11-08] MEDS: NEURONTIN CAP 400 MG PO SCH (21:07)
[2024-11-08] MEDS: LR 1,000 ML IV 1,000 ML IV SCH (23:09)
[2024-11-09 05:34] LABS: BASOPHILS # (AUTO) 0.2 X10^3/uL (0.0-0.1); BASOPHILS % (AUTO) 0.8 % (0.2-1.0); EOSINOPHILS % (AUTO) 0.1 % (0.9-2.9); HEMOGLOBIN 10.8 g/dL (13.5-18.0); LYMPHOCYTES # (AUTO) 1.2 X10^3/uL (1.3-2.9); LYMPHOCYTES % (AUTO) 5.3 % (21.0-51.0); MEAN CORPUSCULAR HGB CONC 31.7 g/dL (33.0-35.0); MEAN CORPUSCULAR VOLUME 82.2 fL (80.0-100.0); MONOCYTES # (AUTO) 1.5 x10^3/uL (0.3-0.8); MONOCYTES % (AUTO) 6.8 % (0.0-13.0); NEUTROPHILS # (AUTO) 19.1 x10^3/uL (2.2-4.8); PLATELET COUNT 303 X10^3/uL (150.0-450.0); RED BLOOD COUNT 4.13 X10^6/uL (4.7-6.0); RED CELL DISTRIBUTION WIDTH 17.7 % (11.6-16.5)
[2024-11-09] MEDS: NovoLIN R (or HumuLIN R) SUBCUT PRN (05:45)
[2024-11-09 05:54] LABS: ALANINE AMINOTRANSFERASE 12 Units/L (12-78); ALBUMIN 2.5 g/dL (3.4-5.0); ALKALINE PHOSPHATASE 92 Units/L (46-116); ASPARTATE AMINO TRANSFERASE 16 Units/L (15-37); BLOOD UREA NITROGEN 23 mg/dL (7-18); CHLORIDE 104 mmol/L (98-107); COR CA(FOR HYPOALB) 10.2 mg/dL (8.5-10.1); COR NA(FOR HYPERGLY) 147 mmol/L (136-145); CREATININE 0.86 mg/dL (0.70-1.30); GLUCOSE 247 mg/dL (65-99); POTASSIUM 4.3 mmol/L (3.5-5.1); SODIUM 143 mmol/L (136-145); TOTAL PROTEIN 6.9 g/dL (6.4-8.2); eGFR NON BLACK RACES > 60 (>60)
[2024-11-09 06:24] LABS: ANISOCYTOSIS SLIGHT; BAND NEUTROPHILS % 4 % (0-10); HYPOCHROMASIA SLIGHT; PLATELET MORPHOLOGY COMMENT NORMAL (NORMAL)
[2024-11-09] MEDS ORDERED: CONSULT PHARMACY - POTASSIUM & MAGNESIUM XX SCH (09:00)
[2024-11-09] MEDS: MAG-OX TAB PO SCH (09:26)
[2024-11-09] MEDS: ASPIRIN EC 81 MG PO SCH (09:26)
[2024-11-09] MEDS: COZAAR PO SCH (09:26)
--- NOTE | 2024-11-09 23:52 | NOTE.SOAP ---
Soap Note Note for Day of Date of Exam: 11/09/24 Subjective Data Subjective Data: Postoperative day #1 after drug-coated balloon angioplasty of the occluded completely occluded right superficial femoral artery and angioplasty of the right anterior tibial artery with right femoral endarterectomy and patch angioplasty. This was a hybrid procedure. Post procedure the flow through the superficial artery was poor. I thought this may be due to the anterior tibial artery being the only runoff and the cath removed. Still complaining of pain of the right foot. Noted to have gangrenous changes of the right fourth and fifth toes. Right groin is stable. Objective Data Temperature: 98.3 F Pulse Rate: 83 Respiratory Rate: 27 Blood Pressure: 164/80 O2 Sat by Pulse Oximetry: 89 Objective Data: Cool right foot. Dressing intact over the gangrenous right fourth and fifth toes. Incision in the right groin with no hematoma. Warm leg down through the right calf Assessment Assessment: Critical ischemia of the right leg status post right femoral endarterectomy of a complex lesion with patch angioplasty and drug-coated balloon angioplasty of the right superficial artery. Patient will return to the operating room tomorrow for arteriogram from above and arch aortogram. May require additional stenting of the right superficial femoral artery Plan Plan: as above
[2024-11-10 05:32] LABS: BASOPHILS # (AUTO) 0.1 X10^3/uL (0.0-0.1); BASOPHILS % (AUTO) 0.3 % (0.2-1.0); EOSINOPHILS # (AUTO) 0.1 x10^3/uL (0.0-0.2); EOSINOPHILS % (AUTO) 0.8 % (0.9-2.9); HEMATOCRIT 33.8 % (42.0-54.0); HEMOGLOBIN 10.9 g/dL (13.5-18.0); LYMPHOCYTES % (AUTO) 12.4 % (21.0-51.0); MEAN CORPUSCULAR HEMOGLOBIN 26.2 pg (27.0-34.0); MEAN CORPUSCULAR HGB CONC 32.3 g/dL (33.0-35.0); MEAN CORPUSCULAR VOLUME 81.2 fL (80.0-100.0); MONOCYTES # (AUTO) 1.7 x10^3/uL (0.3-0.8); MONOCYTES % (AUTO) 10.9 % (0.0-13.0); NEUTROPHILS % (AUTO) 75.6 % (42.0-75.0); PLATELET COUNT 329 X10^3/uL (150.0-450.0); RED BLOOD COUNT 4.17 X10^6/uL (4.7-6.0); RED CELL DISTRIBUTION WIDTH 17.3 % (11.6-16.5); WHITE BLOOD COUNT 15.9 X10^3/uL (3.6-10.0)
[2024-11-10 05:42] LABS: ALANINE AMINOTRANSFERASE 16 Units/L (12-78); ALBUMIN 2.3 g/dL (3.4-5.0); ALKALINE PHOSPHATASE 85 Units/L (46-116); ASPARTATE AMINO TRANSFERASE 30 Units/L (15-37); BLOOD UREA NITROGEN 16 mg/dL (7-18); CALCIUM 8.8 mg/dL (8.5-10.1); CARBON DIOXIDE 28.8 mmol/L (21-32); CHLORIDE 103 mmol/L (98-107); COR CA(FOR HYPOALB) 10.2 mg/dL (8.5-10.1); COR NA(FOR HYPERGLY) 143 mmol/L (136-145); CREATININE 0.75 mg/dL (0.70-1.30); GLUCOSE 175 mg/dL (65-99); MAGNESIUM 1.9 mg/dL (2.0-2.9); POTASSIUM 3.9 mmol/L (3.5-5.1); SODIUM 141 mmol/L (136-145); TOTAL PROTEIN 6.6 g/dL (6.4-8.2); eGFR NON BLACK RACES > 60 (>60)
[2024-11-10] MEDS: NICOTINE PATCH TD SCH (09:02)
[2024-11-10] MEDS: APRESOLINE INJ 20 MG VIAL IVP ONE (11:27)
[2024-11-10] MEDS: OFIRMEV IV 1000 MG VIAL 1,000 MG/100 ML VIAL IV ONE (12:35)
[2024-11-10] MEDS: VERSED ONE (12:35)
[2024-11-10] MEDS: DIPRIVAN VIAL 20 ML ONE ×3 (12:35→15:05)
[2024-11-10] MEDS: FENTANYL VIAL INJ 100 mcg ONE ×2 (12:35→13:33)
[2024-11-10] MEDS: PRECEDEX INJ VIAL ONE (12:35)
[2024-11-10] MEDS: XYLOCAINE 2 % (PLAIN) ONE (12:35)
[2024-11-10] MEDS: HEPARIN SODIUM INJ 5000 UNITS ONE ×3 (12:36→15:42)
[2024-11-10] MEDS: PEPCID 20 MG VIAL ONE (12:37)
[2024-11-10] MEDS: REGLAN INJ 10 MG VIAL ONE (12:37)
[2024-11-10] MEDS: ZOFRAN INJ 4 MG VIAL ONE (12:37)
[2024-11-10] MEDS: NS 1,000 ML IV 1,000 ML ONE (12:57)
[2024-11-10] MEDS: NS 1,000 ML IV 500 ML IV PRN (13:05)
[2024-11-10] MEDS: ZOFRAN INJ 4 MG VIAL IVP PRN (13:13)
[2024-11-10] MEDS: PEPCID 20 MG VIAL IVP PRN (13:13)
[2024-11-10] MEDS: VERSED IVP PRN (13:13)
[2024-11-10] MEDS: REGLAN INJ 10 MG VIAL IVP PRN (13:13)
[2024-11-10] MEDS: NS 100 ML IV 100 ML ONE (13:14)
[2024-11-10] MEDS ORDERED: KETAMINE HCL ONE (13:14)
[2024-11-10] MEDS: ANCEF VIAL 1 GRAM ONE (13:14)
[2024-11-10] MEDS: VISIPAQUE 100 ML ONE (13:14)
[2024-11-10] MEDS: ANCEF VIAL 1 GRAM IV PRN (13:20)
[2024-11-10] MEDS: XYLOCAINE 2 % (PLAIN) INJ PRN (13:22)
[2024-11-10] MEDS ORDERED: DIPRIVAN IVP PRN (13:23)
[2024-11-10] MEDS: KETAMINE HCL IV PRN (13:23)
[2024-11-10] MEDS: PRECEDEX INJ VIAL IVP PRN (13:23)
[2024-11-10] MEDS: VISIPAQUE 50 ML ONE (13:24)
--- NOTE | 2024-11-10 13:28 | DR.OPNOTE ---
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 The left groin and entire right leg were prepped and draped in sterile fashion. Patient was given intravenous sedation supervised by myself. Timeout for the procedure obtained. Ultrasound used to identify the right anterior tibial artery at the ankle and the skin overlying it infiltrated with 0.5% Marcaine. Ultrasound used to guide puncture of the right anterior tibial artery artery and a 0.012 inch guidewire placed. Incision made over the guidewire at the skin edge with a #11 knife blade and the micro sheath placed over the guidewire into the right anterior tibial artery artery. Small wire exchanged for a 0.035 inch a Advantage Glidewire and the micro sheath exchanged for a 6 Azeri short vascular sheath. Patient given 5000 units of intravenous heparin. [place] catheter placed over the 0.035 inch wire and the wire taken all the way through the completely occluded common femoral artery into the right iliac artery stents which was confirmed by arteriogram. This was selective ctherization. 0.035 inch wire removed and through the [place] we placed a 0.014 inch Thruway wire. The occluded right superficial artery was balloon dilated using two 6 mm 200 mm [employer] Demorest balloons and then inflating each for 3 minutes, then removing them over the wire we placed a [place] 3 mm x 100 mm balloon and balloon dilated the proximal, severely diseased right anterior tibial artery. Post procedure arteriogram showed flow through these arteries . At this point we planned to convert to the open part of the procedure. Timeout had been performed previously. Vertical incision was made in the right groin , dissecting down sharply with a #10 blade knife and electrocautery. Common femoral artery dissected free up to the soft part of the distal part of the external iliac artery. Vessel loops placed arounf the profunda femoris and superficial femoral arteries after dissecting them free. Patient had been given heparin atthe beginning of the case. i.e. 5000 units. Additional 3000 units was given at 1 hour. Artery was clamped proximally and distally and opened with #11 knife blade and [place] scissors. Patient had dense plaque throughout the common femoral artery and it was removed with a [facility] dissector. All floating material removed. There was excellent flow through the proximal part of the vessel. At this point an 8 cm x 0.8 cm bovine pericardial patch was prepared and sewn into position to close the arteriotomy using running 5-0 Prolene suture. On releasing the clamps there was some bleeding from the patch requiring 2 [id number] sutures of 5-0 Prolene. Arteriogram carried out from below showing the superficial artery to be occluded at its takeoff at the superior part of the remaining stent. From below this was balloon dilated with a 6 mm [employer] drug-coated balloon inflated for 3 minutes. This was then used to dilate the rest the superficial artery and the proximal part of the anterior tibial artery. There was mild amount of flow. At this point I felt that the flow was being hindered by the sheath in the anterior tibial artery as it was the only runoff. Plan was to observe him overnight and if not improved will require repeat arteriogram. May require stenting of the entire right superficial femoral artery. Right groin incision closed with 2 layers of running 3-0 Vicryl suture after irrigating. Skin closed with skin devon. Dressings applied to the right groin incision. Tibial band was placed over the puncture site of the anterior tibial artery and inflated and the sheath removed. Patient taken to critical care unit for continued care. 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 tolerated procedure without difficulty. Taken to the CCU in stable condition.
[2024-11-10] MEDS: OFIRMEV IV 1000 MG VIAL 1,000 MG/100 ML VIAL IV PRN (13:30)
[2024-11-10] MEDS: MARCAINE 0.5% ONE (13:35)
[2024-11-10] MEDS: HEPARIN 1,000 UNIT/500 ML-NS 1,000 UNIT/500 ML IV.SOLN ONE ×2 (13:35)
[2024-11-10] MEDS: TORADOL 30 MG VIAL ONE (13:45)
[2024-11-10] MEDS: TORADOL 30 MG VIAL IVP PRN (13:46)
[2024-11-10] MEDS: FENTANYL VIAL INJ 100 mcg IVP PRN (13:57)
[2024-11-10] MEDS: DILAUDID INJ ONE (14:01)
[2024-11-10] MEDS: HEPARIN SODIUM INJ 5000 UNITS IVP PRN (15:39)
[2024-11-10] MEDS: DILAUDID INJ IVP PRN (15:41)
--- NOTE | 2024-11-10 16:15 | OR.IMMED ---
IMMEDIATE POST-OP NOTE Immediate Post-Op Note Date of surgery/procedure: 11/10/24 Pre-Op Diagnosis: Limb threatening ischemia right leg Post-Op Diagnosis: Same, see findings Procedure: Aortogram, arteriogram right lower extremity, stenting of right super ficial femoral artery with multiple stents balloon angioplasty of right common iliac and external iliac stents, stenting of the right common femoral artery with a Viabahn 7 mm 0.50 mm covered stent, balloon angioplasty of distal arteriovenous fistula to resolve it. Description of Procedure: Dictated Surgeon/Academic Associate: José Rutledge MD, FACS Findings: Complete occluded right superficial femoral artery. Distal arteriovenous fistula from the tibioperoneal trunk, occlusion of the site of the common femoral endarterectomy and patch angioplasty. Estimated Blood Loss: 100 cc Complications: None, flow reestablished through the anterior tibial artery with pulsatile flow of the right leg
[2024-11-11 06:12] LABS: BASOPHILS % (AUTO) 0.3 % (0.2-1.0); EOSINOPHILS # (AUTO) 0.1 x10^3/uL (0.0-0.2); EOSINOPHILS % (AUTO) 0.5 % (0.9-2.9); HEMATOCRIT 31.6 % (42.0-54.0); LYMPHOCYTES % (AUTO) 7.5 % (21.0-51.0); MEAN CORPUSCULAR HEMOGLOBIN 25.9 pg (27.0-34.0); MEAN CORPUSCULAR HGB CONC 31.7 g/dL (33.0-35.0); MEAN CORPUSCULAR VOLUME 81.9 fL (80.0-100.0); MEAN PLATELET VOLUME 9.7 fL (7.4-11.0); MONOCYTES # (AUTO) 1.1 x10^3/uL (0.3-0.8); MONOCYTES % (AUTO) 8.5 % (0.0-13.0); NEUTROPHILS # (AUTO) 11.3 x10^3/uL (2.2-4.8); NEUTROPHILS % (AUTO) 83.2 % (42.0-75.0); PLATELET COUNT 330 X10^3/uL (150.0-450.0); RED BLOOD COUNT 3.86 X10^6/uL (4.7-6.0); RED CELL DISTRIBUTION WIDTH 18.1 % (11.6-16.5); WHITE BLOOD COUNT 13.6 X10^3/uL (3.6-10.0)
[2024-11-11 06:29] LABS: ALANINE AMINOTRANSFERASE 23 Units/L (12-78); ALBUMIN 2.1 g/dL (3.4-5.0); ALKALINE PHOSPHATASE 81 Units/L (46-116); ASPARTATE AMINO TRANSFERASE 91 Units/L (15-37); BLOOD UREA NITROGEN 18 mg/dL (7-18); CALCIUM 8.7 mg/dL (8.5-10.1); CARBON DIOXIDE 24.3 mmol/L (21-32); CHLORIDE 103 mmol/L (98-107); COR CA(FOR HYPOALB) 10.2 mg/dL (8.5-10.1); COR NA(FOR HYPERGLY) 144 mmol/L (136-145); GLUCOSE 199 mg/dL (65-99); MAGNESIUM 1.9 mg/dL (2.0-2.9); POTASSIUM 3.9 mmol/L (3.5-5.1); SODIUM 142 mmol/L (136-145); TOTAL PROTEIN 6.4 g/dL (6.4-8.2); eGFR NON BLACK RACES > 60 (>60)
[2024-11-11] MEDS: COLACE CAP 100 MG PO PRN (11:16)
[2024-11-11] MEDS: PERCOCET TAB 5/325 MG PO PRN (16:02)
--- NOTE | 2024-11-11 23:44 | NOTE.SOAP ---
Soap Note Note for Day of Date of Exam: 11/11/24 Subjective Data Subjective Data: See previous notes. Status post right femoral enterectomy and patch angioplasty with stenting of the right superficial femoral artery which still did not reestablish flow. Patient taken back to the operating suite yesterday several to have arteriovenous fistula distally which resolved with balloon angioplasty and did require AngioJet thrombectomy of the previously placed stents as well as covered stents placed across the endarterectomy site. Flow reestablished with pulsatile flow in the sheath in the anterior tibial artery. Patient now with warm right calf. Known to have dry gangrene of the right fourth and fifth toes. Still some dusky discoloration of the left foot. Objective Data Temperature: 98.9 F Pulse Rate: 100 Respiratory Rate: 16 Blood Pressure: 179/76 O2 Sat by Pulse Oximetry: 97 Objective Data: Exam as above. Assessment Assessment: Patient to be evaluated for assisted facility placement. Wi ll need to evaluate his leg further. May still require below-knee amputation versus amputation of the right fourth and fifth toes. Plan Plan: As above
[2024-11-12 05:20] LABS: BASOPHILS # (AUTO) 0.1 X10^3/uL (0.0-0.1); BASOPHILS % (AUTO) 0.4 % (0.2-1.0); EOSINOPHILS # (AUTO) 0.1 x10^3/uL (0.0-0.2); EOSINOPHILS % (AUTO) 0.6 % (0.9-2.9); HEMATOCRIT 29.5 % (42.0-54.0); HEMOGLOBIN 9.5 g/dL (13.5-18.0); LYMPHOCYTES # (AUTO) 1.2 X10^3/uL (1.3-2.9); LYMPHOCYTES % (AUTO) 8.6 % (21.0-51.0); MEAN CORPUSCULAR HEMOGLOBIN 26.2 pg (27.0-34.0); MEAN CORPUSCULAR HGB CONC 32.3 g/dL (33.0-35.0); MEAN CORPUSCULAR VOLUME 81.1 fL (80.0-100.0); MEAN PLATELET VOLUME 10.2 fL (7.4-11.0); MONOCYTES # (AUTO) 1.4 x10^3/uL (0.3-0.8); NEUTROPHILS % (AUTO) 80.4 % (42.0-75.0); PLATELET COUNT 338 X10^3/uL (150.0-450.0); RED BLOOD COUNT 3.63 X10^6/uL (4.7-6.0); RED CELL DISTRIBUTION WIDTH 17.6 % (11.6-16.5); WHITE BLOOD COUNT 13.7 X10^3/uL (3.6-10.0)
[2024-11-12 05:25] LABS: BLOOD UREA NITROGEN 12 mg/dL (7-18); CALCIUM 8.5 mg/dL (8.5-10.1); CARBON DIOXIDE 25.2 mmol/L (21-32); CHLORIDE 99 mmol/L (98-107); COR NA(FOR HYPERGLY) 141 mmol/L (136-145); CREATININE 0.79 mg/dL (0.70-1.30); GLUCOSE 208 mg/dL (65-99); MAGNESIUM 1.6 mg/dL (2.0-2.9); POTASSIUM 3.4 mmol/L (3.5-5.1); SODIUM 138 mmol/L (136-145); eGFR NON BLACK RACES > 60 (>60)
[2024-11-12] MEDS: CONSULT PHARMACY - POTASSIUM & MAGNESIUM XX SCH (08:08)
[2024-11-12] MEDS: MAG-OX TAB PO SCH (08:40)
[2024-11-12] MEDS: K-DUR TAB 20 MEQ PO SCH (08:40)
[2024-11-12] MEDS: NEOSPORIN OINT TOP PRN (09:30)
--- NOTE | 2024-11-12 23:38 | NOTE.SOAP ---
Soap Note Note for Day of Date of Exam: 11/12/24 Subjective Data Subjective Data: Status post multiple revascularization procedures of the right leg. Most prominently right femoral endarterectomy and patch angioplasty 7 requiring stenting through this with a covered stent. Stenting of the right superficial artery also required. Patient main runoff is the anterior tibial artery. Doppler signal present anterior tibial artery. However his foot is still cool. Gangrene of the right fourth and fifth toes. Objective Data Temperature: 97.9 F Pulse Rate: 94 Respiratory Rate: 20 Blood Pressure: 177/81 O2 Sat by Pulse Oximetry: 95 Objective Data: Exam as above. Assessment Assessment: Status post revascularization of the right leg, difficult. Plan Plan: Will observe. May require amputation of the right fourth and fifth toe. Still risk of right below-knee amputation
[2024-11-13 04:59] LABS: BASOPHILS # (AUTO) 0.1 X10^3/uL (0.0-0.1); BASOPHILS % (AUTO) 0.8 % (0.2-1.0); EOSINOPHILS # (AUTO) 0.1 x10^3/uL (0.0-0.2); EOSINOPHILS % (AUTO) 0.9 % (0.9-2.9); HEMOGLOBIN 9.3 g/dL (13.5-18.0); LYMPHOCYTES # (AUTO) 1.9 X10^3/uL (1.3-2.9); LYMPHOCYTES % (AUTO) 12.4 % (21.0-51.0); MEAN CORPUSCULAR VOLUME 81.3 fL (80.0-100.0); MONOCYTES # (AUTO) 1.7 x10^3/uL (0.3-0.8); MONOCYTES % (AUTO) 11.2 % (0.0-13.0); NEUTROPHILS # (AUTO) 11.3 x10^3/uL (2.2-4.8); NEUTROPHILS % (AUTO) 74.7 % (42.0-75.0); PLATELET COUNT 335 X10^3/uL (150.0-450.0); RED BLOOD COUNT 3.56 X10^6/uL (4.7-6.0); RED CELL DISTRIBUTION WIDTH 17.7 % (11.6-16.5); WHITE BLOOD COUNT 15.1 X10^3/uL (3.6-10.0)
[2024-11-13 05:03] LABS: BLOOD UREA NITROGEN 9 mg/dL (7-18); CALCIUM 8.3 mg/dL (8.5-10.1); CARBON DIOXIDE 31.3 mmol/L (21-32); CHLORIDE 101 mmol/L (98-107); COR NA(FOR HYPERGLY) 140 mmol/L (136-145); CREATININE 0.68 mg/dL (0.70-1.30); GLUCOSE 148 mg/dL (65-99); POTASSIUM 3.2 mmol/L (3.5-5.1); SODIUM 139 mmol/L (136-145); eGFR NON BLACK RACES > 60 (>60)
[2024-11-13] MEDS ORDERED: CONSULT PHARMACY - POTASSIUM & MAGNESIUM XX SCH (06:00)
[2024-11-13] MEDS: K-DUR TAB 20 MEQ PO SCH (08:11)
[2024-11-13] MEDS: MAG-OX TAB PO SCH (08:11)
[2024-11-14] MEDS ORDERED: CONSULT PHARMACY - POTASSIUM & MAGNESIUM XX SCH (07:00)
[2024-11-14] MEDS ORDERED: K-DUR TAB 20 MEQ PO SCH (09:00)
[2024-11-14] MEDS ORDERED: CMPD IV NR (09:00)
[2024-11-14] MEDS ORDERED: MAG-OX TAB PO SCH (09:00)
[2024-11-14] MEDS ORDERED: POTASSIUM CHL IV NR (09:00)
[2024-11-14] MEDS ORDERED: NS 0.45% IV NR (09:00)
[2024-11-14] MEDS: LR 1,000 ML IV 1,000 ML with MAGNESIUM SULFATE 50% INJ VIAL 1 G IV SCH (09:08)
[2024-11-14] MEDS: NS 500 ML IV 500 ML with POTASSIUM CHLORIDE INJ 40 MEQ VIAL 40 MEQ IV NR (09:08)
[2024-11-14] MEDS: MILK OF MAGNESIA PO PRN (09:30)
--- NOTE | 2024-11-14 13:03 | DR.OPNOTE ---
OP NOTE Pre-Op Diagnosis: Critical ischemia of the right leg Post-Op Diagnosis: Occluded right common femoral artery endarterectomy and patch angioplasty, Procedure: PROCEDURE: Diagnostic aortogram, diagnostic arteriogram right leg, stenting of the right common iliac and right external iliac arteries, stenting of right common femoral artery with 7 mm Viabahn covered stent, stenting right superficial femoral artery, balloon angioplasty of righ tibial peroneal trunk to resolve arterio-venous fistula . NARRATIVE: The patient was taken to the operative suite and placed in the supine position. The left groin and entire right leg were prepped and draped in sterile fashion. Patient was given intravenous sedation supervised by myself. Timeout for the procedure obtained. Ultrasound used to identify the femoral artery in the left groin and the skin overlying it infiltrated with 0.5% Marcaine. Ultrasound used to guide puncture of the left femoral artery and a 0.012 inch guidewire placed. Incision made over the guidewire at the skin edge with a #11 knife blade and the micro sheath placed over the guidewire into the femoral artery. Small wire exchanged for a 0.035 inch a Advantage Glidewire and the micro sheath exchanged for a 5 Spanish vascular sheath. Patient given 5000 units of intravenous heparin. Omni catheter placed over the guidewire into the aorta and power injector used to perform aortogram showing normal aorta with evidence of stenosis of both the right common and right external iliac artery stents.. The Omni catheter was then used to direct the guidewire down the right common iliac artery to the distal right external iliac artery. The Omni catheter exchanged for a [place] catheter and sequential arteriograms performed of the right leg showing occlusion of the right common femoral artery at the site of edarterectomy and patch angioplasty and occlusion of the right superficial femoral artery. Question of arteriovenous fistula which ultimately proved to be coming from the tibioperoneal trunk. The [place] catheter removed and over the guidewire the 5 Spanish sheath was exchanged for a 7 Spanish [place] Sheath which was parked right iliac artery . [place] catheter and the 0.035 guidewire used to traverse the arteries of the right leg ultimately ending in right anterior tibial artery . [place] catheter used to exchange 0.035 inch wire for a 0.014 inch Thruway wire . Over this wire we placed a [place] 6 mm x 200 mm balloon and performed angioplasty of the iliac stents on the right side. Sheath was then advanced to the distal external iliac artery on the right side. We then placed a 6 mm x 60 mm Maren stent in the proximal right superficial artery at the takeoff of the previous stent then balloon dilated it with a 6 mm [place] balloon. Arteriogram still showed occlusion of the common femoral artery and occlusion of the distal superficial femoral artery. At this point over the wire we placed an Maren 6 mm 150 mm stent and a Maren 6 mg 120 mm stent with overlap in the distal superficial artery and dilated them with a 6 mm [place] balloon. Repeat arteriogram still showed occlusion of the right common femoral artery. Therefore over this we placed a 7 mm x 150 mm Viabahn stent and balloon dilated it with a 6 mm balloon. Arteriogram showed good flow through the common femoral artery and superficial artery but there was still evidence of an arteriovenous fistula and subsequent arteriogram showed it to be originating from the tibioperoneal trunk. The arterial venous fistula was resolved by performing angioplasty of the tibioperoneal trunk with a 4 mm x 80 mm [employer] balloon inflating it for 2 minutes. Repeat arteriogram showed resolution of the fistula. After arterial intervention follow-up arteriogram performed showing good flow through the arteries of the right leg with the only runoff being primarily the anterior tibial artery. Wires and devices removed from the [place] sheath. This sheath pulled back into the aorta and a 0.035 guidewire placed. [place] sheath exchanged over the wire for a Angio-Seal device used to close the puncture of the left femoral artery. Patient taken to same-day surgery in good condition. Type of Anesthesia: Local (0.5% Marcaine) Anesthesia Comment: plus MAC Findings: Stenosis of previously placed right common iliac artery and right external leg artery stents, completely occluded right superficial artery. Occluded right common femoral artery at site of enterectomy and patch angioplasty, distal arteriovenous fistula of the tibioperoneal trunk Type of Fluids Used:: Lactated Ringers Total Amount of Fluid Infused:: 900cc Urine output: 1000cc EBL: 100cc Hardware: Maren stents, 6 mm x 60 mm x 1, 6 mm x 150 mm x 1, 6 mm 120 mm x 1., Viabahn stent 7 mm x 150 mm Complications:: none Needle/Sponge Count:: correct Disposition/Condition: Pt. tolerated procedure without difficulty. Taken to CCU in stable condition.
--- NOTE | 2024-11-14 13:07 | NOTE.SOAP ---
Soap Note Note for Day of Date of Exam: 11/13/24 Subjective Data Subjective Data: Right foot not improving any. Objective Data Temperature: 98.0 F Pulse Rate: 80 Respiratory Rate: 22 Blood Pressure: 185/70 O2 Sat by Pulse Oximetry: 100 Objective Data: Right groin stable. Right foot appears more ischemic. Will require right below-knee amputation. Assessment Assessment: Failed revascularization of the right leg. Plan Plan: Tentatively scheduled for right below-knee amputation on November 15
[2024-11-14] MEDS: RESTORIL CAP 15 MG PO PRN (21:04)
[2024-11-14] MEDS: HIBICLENS WASH EXT ONE (21:57)
--- NOTE | 2024-11-14 22:53 | NOTE.SOAP ---
Soap Note Note for Day of Date of Exam: 11/14/24 Subjective Data Subjective Data: Right foot continues to be more cyanotic and gangrenous. Flow not good in the right foot. Objective Data Temperature: 98.7 F Pulse Rate: 91 Respiratory Rate: 19 Blood Pressure: 172/74 O2 Sat by Pulse Oximetry: 100 Objective Data: Right foot as described above. Assessment Assessment: Failed revascularization of the right leg. Plan Plan: Plan for right below-knee amputation tomorrow.
[2024-11-15 05:06] LABS: BASOPHILS # (AUTO) 0.1 X10^3/uL (0.0-0.1); BASOPHILS % (AUTO) 0.6 % (0.2-1.0); EOSINOPHILS # (AUTO) 0.1 x10^3/uL (0.0-0.2); HEMATOCRIT 28.6 % (42.0-54.0); HEMOGLOBIN 9.1 g/dL (13.5-18.0); LYMPHOCYTES # (AUTO) 1.6 X10^3/uL (1.3-2.9); LYMPHOCYTES % (AUTO) 10.5 % (21.0-51.0); MEAN CORPUSCULAR HEMOGLOBIN 25.9 pg (27.0-34.0); MEAN CORPUSCULAR HGB CONC 31.9 g/dL (33.0-35.0); MEAN CORPUSCULAR VOLUME 81.1 fL (80.0-100.0); MEAN PLATELET VOLUME 9.9 fL (7.4-11.0); MONOCYTES # (AUTO) 1.5 x10^3/uL (0.3-0.8); MONOCYTES % (AUTO) 10.2 % (0.0-13.0); NEUTROPHILS # (AUTO) 11.8 x10^3/uL (2.2-4.8); NEUTROPHILS % (AUTO) 77.7 % (42.0-75.0); PLATELET COUNT 371 X10^3/uL (150.0-450.0); RED BLOOD COUNT 3.52 X10^6/uL (4.7-6.0); RED CELL DISTRIBUTION WIDTH 17.9 % (11.6-16.5); WHITE BLOOD COUNT 15.2 X10^3/uL (3.6-10.0)
[2024-11-15 05:19] LABS: ALANINE AMINOTRANSFERASE 49 Units/L (12-78); ALBUMIN 1.7 g/dL (3.4-5.0); ALKALINE PHOSPHATASE 74 Units/L (46-116); ASPARTATE AMINO TRANSFERASE 169 Units/L (15-37); BLOOD UREA NITROGEN 8 mg/dL (7-18); CALCIUM 8.4 mg/dL (8.5-10.1); CARBON DIOXIDE 34.3 mmol/L (21-32); CHLORIDE 101 mmol/L (98-107); COR CA(FOR HYPOALB) 10.2 mg/dL (8.5-10.1); COR NA(FOR HYPERGLY) 140 mmol/L (136-145); CREATININE 0.67 mg/dL (0.70-1.30); GLUCOSE 151 mg/dL (65-99); POTASSIUM 3.2 mmol/L (3.5-5.1); SODIUM 139 mmol/L (136-145); TOTAL PROTEIN 6.1 g/dL (6.4-8.2); eGFR NON BLACK RACES > 60 (>60)
[2024-11-15] MEDS ORDERED: CONSULT PHARMACY - POTASSIUM & MAGNESIUM XX SCH (07:00)
[2024-11-15] MEDS: K-DUR TAB 20 MEQ PO SCH (09:06)
[2024-11-15] MEDS: DIPRIVAN VIAL 20 ML ONE (09:45)
[2024-11-15] MEDS: FENTANYL VIAL INJ 100 mcg ONE (09:45)
[2024-11-15] MEDS: PEPCID 20 MG VIAL ONE (09:45)
[2024-11-15] MEDS: REGLAN INJ 10 MG VIAL ONE (09:45)
[2024-11-15] MEDS: ZOFRAN INJ 4 MG VIAL ONE (09:45)
[2024-11-15] MEDS: VERSED ONE (09:46)
[2024-11-15] MEDS: OFIRMEV IV 1000 MG VIAL 1,000 MG/100 ML VIAL IV ONE (09:48)
[2024-11-15] MEDS: NS 1,000 ML IV 1,000 ML ONE (09:49)
[2024-11-15] MEDS: NS 100 ML IV 100 ML ONE (10:06)
[2024-11-15] MEDS: ANCEF VIAL 1 GRAM ONE (10:06)
[2024-11-15] MEDS: VERSED IVP PRN (10:15)
[2024-11-15] MEDS: PEPCID 20 MG VIAL IVP PRN (10:15)
[2024-11-15] MEDS: REGLAN INJ 10 MG VIAL IVP PRN (10:15)
[2024-11-15] MEDS: ZOFRAN INJ 4 MG VIAL IVP PRN (10:15)
[2024-11-15] MEDS: NS 1,000 ML IV 700 ML IV PRN (10:20)
[2024-11-15] MEDS: ANCEF VIAL 1 GRAM IV PRN (10:20)
[2024-11-15] MEDS: XYLOCAINE 2 % (PLAIN) INJ PRN (10:23)
[2024-11-15] MEDS: DIPRIVAN IVP PRN (10:24)
[2024-11-15] MEDS: OFIRMEV IV 1000 MG VIAL 1,000 MG/100 ML VIAL IV PRN (10:30)
[2024-11-15] MEDS: FENTANYL VIAL INJ 100 mcg IVP PRN (10:38)
[2024-11-15] MEDS: NEO-SYNEPHRINE INJ ONE (10:38)
[2024-11-15] MEDS: DILAUDID INJ ONE (10:39)
[2024-11-15] MEDS: KETAMINE HCL IV PRN (10:46)
[2024-11-15] MEDS: PRECEDEX INJ VIAL IVP PRN (10:53)
[2024-11-15] MEDS: DILAUDID INJ IVP PRN ×2 (10:56→11:35)
[2024-11-15] MEDS ORDERED: BENADRYL INJ 50 MG VIAL IVP PRN (11:06)
[2024-11-15] MEDS ORDERED: REGLAN INJ 10 MG VIAL IVP PRN (11:06)
[2024-11-15] MEDS ORDERED: BARHEMSYS INJ IVP PRN (11:06)
[2024-11-15] MEDS ORDERED: ZOFRAN INJ 4 MG VIAL IVP PRN (11:06)
--- NOTE | 2024-11-15 11:25 | OR.IMMED ---
IMMEDIATE POST-OP NOTE Immediate Post-Op Note Date of surgery/procedure: 11/15/24 Pre-Op Diagnosis: Gangrenous right leg Post-Op Diagnosis: Same Procedure: Right below-knee amputation Description of Procedure: dictated Surgeon/Pick Out Hand: José Rutledge MD, FACS Specimens Removed: Right leg below the knee Complications: none Progress Notes: Patient taken to PACU. Will return to CCU.
[2024-11-15] MEDS: APRESOLINE INJ 20 MG VIAL IVP ONE (13:47)
--- NOTE | 2024-11-15 17:34 | DR.OPNOTE ---
OP NOTE Pre-Op Diagnosis: Gangrenous right foot Post-Op Diagnosis: Same Procedure Date Date Of Procedure: 11/15/24 Procedure: PROCEDURE: Right below-knee amputation NARRATIVE: The patient was taken to the operative suite and placed in the supine position. General endotracheal anesthesia induced and the entire right leg prepped and draped in sterile fashion. Timeout for the procedure obtained. Starting 1 handsbreadth below the tibial tuberosity a dog-legged incision was made of the right leg entering the fascia with electrocautery. The anterior rtibial compartment with electrocautery dividing all the muscle and dividing the anterior tibial artery and vein between clamps and tying with 2-0 silk suture ligatures. It should be noted the patient had palpable pulse in the anterior tibial artery. At this point the periosteum of the tibia elevated with a periosteal elevator. Tibia divided with a Gigli saw. Fibula divided with a bone cutter and amputation knife used to complete the amputation. All hemostasis obtained electrocautery. The area irrigated copiously. The fascia of the 2 flaps closed with interrupted 2-0 Vicryl sutures. Skin closed with skin devon. Compressive dressing applied. Patient tolerated this well, extu bated and taken to PACU in good condition. Type of Anesthesia: General Anesthetic w/ETT Findings: As above, palpable pulse in anterior tibial artery Specimen/Pathology: Right foot Type of Fluids Used:: Lactated Ringers EBL: < 100cc Complications:: none Needle/Sponge Count:: correct Disposition/Condition: Pt. tolerated procedure without difficulty. Extubated in the OR and taken to PACU in stable condition.
[2024-11-16 05:12] LABS: BASOPHILS # (AUTO) 0.1 X10^3/uL (0.0-0.1); BASOPHILS % (AUTO) 0.5 % (0.2-1.0); EOSINOPHILS # (AUTO) 0.1 x10^3/uL (0.0-0.2); EOSINOPHILS % (AUTO) 0.9 % (0.9-2.9); HEMATOCRIT 27.5 % (42.0-54.0); HEMOGLOBIN 8.8 g/dL (13.5-18.0); LYMPHOCYTES # (AUTO) 1.9 X10^3/uL (1.3-2.9); MEAN CORPUSCULAR HEMOGLOBIN 25.9 pg (27.0-34.0); MEAN CORPUSCULAR HGB CONC 31.9 g/dL (33.0-35.0); MEAN CORPUSCULAR VOLUME 81.2 fL (80.0-100.0); MEAN PLATELET VOLUME 9.5 fL (7.4-11.0); MONOCYTES % (AUTO) 8.6 % (0.0-13.0); PLATELET COUNT 394 X10^3/uL (150.0-450.0); RED BLOOD COUNT 3.38 X10^6/uL (4.7-6.0); RED CELL DISTRIBUTION WIDTH 17.8 % (11.6-16.5); WHITE BLOOD COUNT 12.2 X10^3/uL (3.6-10.0)
[2024-11-16 05:20] LABS: ALANINE AMINOTRANSFERASE 41 Units/L (12-78); ALBUMIN 1.6 g/dL (3.4-5.0); ALKALINE PHOSPHATASE 74 Units/L (46-116); ASPARTATE AMINO TRANSFERASE 94 Units/L (15-37); BLOOD UREA NITROGEN 4 mg/dL (7-18); CALCIUM 8.1 mg/dL (8.5-10.1); CARBON DIOXIDE 33.6 mmol/L (21-32); CHLORIDE 99 mmol/L (98-107); COR NA(FOR HYPERGLY) 139 mmol/L (136-145); GLUCOSE 165 mg/dL (65-99); SODIUM 137 mmol/L (136-145); eGFR NON BLACK RACES > 60 (>60)
[2024-11-16] MEDS ORDERED: CONSULT PHARMACY - POTASSIUM & MAGNESIUM XX SCH (06:00)
[2024-11-16] MEDS: K-DUR TAB 20 MEQ PO SCH (09:03)
--- NOTE | 2024-11-16 10:11 | NOTE.SOAP ---
Soap Note Note for Day of Date of Exam: 11/16/24 Subjective Data Subjective Data: Postoperative day 1 after right below-knee amputation. Doing well. Pain relieved. Objective Data Temperature: 97.4 F Pulse Rate: 105 Respiratory Rate: 24 Blood Pressure: 105/54 O2 Sat by Pulse Oximetry: 85 Objective Data: Pain under much better control since amputation. Hemoglobin 8.8Potassium 3.0. White blood cell count 12,200 dressing intact without bleeding or drainage right leg Assessment Assessment: Status post right below-knee amputation doing well Plan Plan: Patient to be placed at [facility] facility
[2024-11-17 05:03] LABS: BASOPHILS # (AUTO) 0.1 X10^3/uL (0.0-0.1); BASOPHILS % (AUTO) 0.7 % (0.2-1.0); EOSINOPHILS # (AUTO) 0.1 x10^3/uL (0.0-0.2); EOSINOPHILS % (AUTO) 1.1 % (0.9-2.9); HEMATOCRIT 28.5 % (42.0-54.0); HEMOGLOBIN 9.2 g/dL (13.5-18.0); LYMPHOCYTES # (AUTO) 1.4 X10^3/uL (1.3-2.9); LYMPHOCYTES % (AUTO) 10.1 % (21.0-51.0); MEAN CORPUSCULAR HEMOGLOBIN 26.1 pg (27.0-34.0); MEAN CORPUSCULAR HGB CONC 32.1 g/dL (33.0-35.0); MEAN CORPUSCULAR VOLUME 81.1 fL (80.0-100.0); MEAN PLATELET VOLUME 9.4 fL (7.4-11.0); MONOCYTES # (AUTO) 1.2 x10^3/uL (0.3-0.8); MONOCYTES % (AUTO) 8.6 % (0.0-13.0); NEUTROPHILS # (AUTO) 10.9 x10^3/uL (2.2-4.8); NEUTROPHILS % (AUTO) 79.5 % (42.0-75.0); PLATELET COUNT 430 X10^3/uL (150.0-450.0); RED BLOOD COUNT 3.51 X10^6/uL (4.7-6.0); RED CELL DISTRIBUTION WIDTH 18.5 % (11.6-16.5); WHITE BLOOD COUNT 13.6 X10^3/uL (3.6-10.0)
[2024-11-17 05:17] LABS: ALANINE AMINOTRANSFERASE 45 Units/L (12-78); ALBUMIN 1.8 g/dL (3.4-5.0); ALKALINE PHOSPHATASE 78 Units/L (46-116); ASPARTATE AMINO TRANSFERASE 126 Units/L (15-37); BLOOD UREA NITROGEN 5 mg/dL (7-18); CALCIUM 8.6 mg/dL (8.5-10.1); CARBON DIOXIDE 33.2 mmol/L (21-32); CHLORIDE 99 mmol/L (98-107); COR CA(FOR HYPOALB) 10.4 mg/dL (8.5-10.1); COR NA(FOR HYPERGLY) 144 mmol/L (136-145); CREATININE 0.74 mg/dL (0.70-1.30); GLUCOSE 184 mg/dL (65-99); MAGNESIUM 1.7 mg/dL (2.0-2.9); POTASSIUM 3.6 mmol/L (3.5-5.1); SODIUM 142 mmol/L (136-145); TOTAL PROTEIN 6.2 g/dL (6.4-8.2); eGFR NON BLACK RACES > 60 (>60)
[2024-11-17] MEDS ORDERED: CONSULT PHARMACY - POTASSIUM & MAGNESIUM XX SCH (07:00)
[2024-11-17] MEDS: MAG-OX TAB PO SCH (08:26)
[2024-11-17] MEDS: K-DUR TAB 20 MEQ PO SCH (08:26)
--- NOTE | 2024-11-17 10:45 | W.DIS.FURT ---
Summary of Discharge Discharge Summary of Date Date of Exam: 11/17/24 Admission Date Date of Admission: 11/08/24 Admission Diagnosis Hospital Course: This is a 69-year-old male who had had stenting of the right iliac artery approximately 2 years previously but he never came back to see me in follow-up. He continued to smoke and did not take his blood thinners as prescribed. He presented with acutely ischemic right leg and underwent thrombolysis of this the week before with good resolution and was brought back for ultimate intervention of the right leg. On November 08 he was taken to the operative suite where he underwent a drug-coated balloon angioplasty right superficial artery and angioplasty of the right anterior tibial artery. He also had right common femoral enterectomy and patch angioplasty for near occlusive ad severe disease of the right common femoral artery . His foot had already had gangrenous changes of the fourth and fifth toes and that continued to progress. He was taken back to the operating suite on 11/10/2024 and underwent multiple stents placed in the right the superficial artery as well as covered stents placed across the old enterectomy and patch angioplasty which not improve his flow and ultimately was taken to the operating suite on November 15 where he underwent a right below knee amputation. He has done well. Laboratory values have been stable. His pain is under control with p.o. pain medications and dressing remains intact. He [facility] to be [facility] a [facility] facility and will continue to medications including Percocet 5 mg tablets every 6 hours PRN pain .He is also on 81 mg of aspirin daily. He will follow-up with me in 1 week. He may need arterial mention of the left leg in the future. Vital Signs: Vital Signs (72 hours) 11/14/24 13:07 11/16/24 10:10 11/14/24 22:53 Temperature 98.0 F 97.4 F L 98.7 F Pulse Rate 80 105 H 91 H Pulse Rate [Brachial] Respiratory Rate 22 24 19 Blood Pressure 185/70 105/54 172/74 Blood Pressure [Left Arm] O2 Sat by Pulse Oximetry 100 85 L 100 Oxygen Delivery Method Oxygen Flow Rate FIO2% 11/14/24 10:53 11/14/24 12:00 11/14/24 11:53 Temperature 99.3 F Pulse Rate 82 Pulse Rate [Brachial] Respiratory Rate 20 24 20 Blood Pressure 163/72 Blood Pressure [Left Arm] O2 Sat by Pulse Oximetry 98 Oxygen Delivery Method Nasal Cannula Oxygen Flow Rate 2 FIO2% 11/14/24 16:24 11/14/24 16:00 11/14/24 16:54 Temperature 99.0 F Pulse Rate 93 H Pulse Rate [Brachial] Respiratory Rate 20 18 17 Blood Pressure 143/64 Blood Pressure [Left Arm] O2 Sat by Pulse Oximetry 96 Oxygen Delivery Method Nasal Cannula Oxygen Flow Rate 2 FIO2% 11/14/24 19:39 11/15/24 04:12 11/14/24 19:00 Temperature Pulse Rate Pulse Rate [Brachial] Respiratory Rate 19 21 Blood Pressure Blood Pressure [Left Arm] O2 Sat by Pulse Oximetry Oxygen Delivery Method Nasal Cannula Oxygen Flow Rate 2 FIO2% 11/14/24 20:00 11/14/24 20:09 11/14/24 21:15 Temperature 98.7 F Pulse Rate 91 H Pulse Rate [Brachial] Respiratory Rate 23 19 Blood Pressure 172/74 Blood Pressure [Left Arm] O2 Sat by Pulse Oximetry 100 Oxygen Delivery Method Nasal Cannula Nasal Cannula Oxygen Flow Rate 2 2 FIO2% 28 11/15/24 00:00 11/15/24 04:00 11/15/24 04:42 Temperature 99.7 F H 99.3 F Pulse Rate 84 93 H Pulse Rate [Brachial] Respiratory Rate 23 21 20 Blood Pressure 176/77 171/74 Blood Pressure [Left Arm] O2 Sat by Pulse Oximetry 99 93 L Oxygen Delivery Method Nasal Cannula Nasal Cannula Oxygen Flow Rate 2 2 FIO2% 11/15/24 05:52 11/15/24 13:10 11/15/24 14:30 Temperature Pulse Rate Pulse Rate [Brachial] Respiratory Rate 20 20 Blood Pressure Blood Pressure [Left Arm] O2 Sat by Pulse Oximetry Oxygen Delivery Method Nasal Cannula Oxygen Flow Rate 2 FIO2% 28 11/15/24 17:42 11/15/24 08:00 11/15/24 09:56 Temperature 98.1 F Pulse Rate 87 Pulse Rate [Brachial] Respiratory Rate 22 18 Blood Pressure 159/75 Blood Pressure [Left Arm] O2 Sat by Pulse Oximetry 94 L Oxygen Delivery Method Nasal Cannula Nasal Cannula Oxygen Flow Rate 2 FIO2% 28 11/15/24 07:00 11/15/24 08:00 11/15/24 11:10 Temperature 99.9 F H 98.6 F Pulse Rate 78 70 Pulse Rate [Brachial] Respiratory Rate 20 16 Blood Pressure 168/72 125/62 Blood Pressure [Left Arm] O2 Sat by Pulse Oximetry 95 97 Oxygen Delivery Method Nasal Cannula Nasal Cannula Aerosol Face Tent Oxygen Flow Rate 2 2 FIO2% 11/15/24 11:15 11/15/24 11:20 11/15/24 11:25 Temperature Pulse Rate 72 72 72 Pulse Rate [Brachial] Respiratory Rate 16 16 17 Blood Pressure 135/62 157/70 167/67 Blood Pressure [Left Arm] O2 Sat by Pulse Oximetry 98 98 98 Oxygen Delivery Method Aerosol Face Tent Aerosol Face Tent Aerosol Face Tent Oxygen Flow Rate FIO2% 11/15/24 11:30 11/15/24 11:35 11/15/24 11:40 Temperature Pulse Rate 80 80 87 Pulse Rate [Brachial] Respiratory Rate 16 18 18 Blood Pressure 171/73 171/74 156/70 Blood Pressure [Left Arm] O2 Sat by Pulse Oximetry 95 95 95 Oxygen Delivery Method Nasal Cannula Nasal Cannula Nasal Cannula Oxygen Flow Rate FIO2% 11/15/24 11:35 11/15/24 11:44 11/15/24 12:00 Temperature 99.5 F Pulse Rate 86 Pulse Rate [Brachial] 90 Respiratory Rate 18 18 16 Blood Pressure 167/72 Blood Pressure [Left Arm] 194/80 O2 Sat by Pulse Oximetry 94 L 92 L Oxygen Delivery Method Nasal Cannula Oxygen Flow Rate FIO2% 11/15/24 12:15 11/15/24 12:30 11/15/24 12:05 Temperature 99.5 F 99.5 F Pulse Rate Pulse Rate [Brachial] 91 H 90 Respiratory Rate 20 17 20 Blood Pressure Blood Pressure [Left Arm] 194/81 176/76 O2 Sat by Pulse Oximetry 93 L 96 Oxygen Delivery Method Oxygen Flow Rate FIO2% 11/15/24 12:45 11/15/24 13:00 11/15/24 14:00 Temperature 98.4 F 98.4 F 97.6 F Pulse Rate Pulse Rate [Brachial] 91 H 82 87 Respiratory Rate 21 22 15 Blood Pressure Blood Pressure [Left Arm] 173/91 220/88 123/57 O2 Sat by Pulse Oximetry 95 92 L 95 Oxygen Delivery Method Oxygen Flow Rate FIO2% 11/15/24 14:10 11/15/24 15:00 11/15/24 15:00 Temperature 97.8 F Pulse Rate Pulse Rate [Brachial] 84 Respiratory Rate 20 18 21 Blood Pressure Blood Pressure [Left Arm] 156/67 O2 Sat by Pulse Oximetry 97 Oxygen Delivery Method Oxygen Flow Rate FIO2% 11/15/24 16:00 11/15/24 17:00 11/15/24 18:12 Temperature 97.8 F 97.7 F Pulse Rate Pulse Rate [Brachial] 86 89 Respiratory Rate 20 16 20 Blood Pressure Blood Pressure [Left Arm] 165/72 157/69 O2 Sat by Pulse Oximetry 96 98 Oxygen Delivery Method Oxygen Flow Rate FIO2% 11/15/24 19:00 11/15/24 21:05 11/15/24 20:00 Temperature 97.9 F Pulse Rate 97 H Pulse Rate [Brachial] Respiratory Rate 18 34 H Blood Pressure 200/91 Blood Pressure [Left Arm] O2 Sat by Pulse Oximetry 96 Oxygen Delivery Method Nasal Cannula Nasal Cannula Oxygen Flow Rate 2 2 FIO2% 11/15/24 20:45 11/15/24 21:00 11/15/24 22:05 Temperature Pulse Rate Pulse Rate [Brachial] Respiratory Rate 19 Blood Pressure 165/72 Blood Pressure [Left Arm] O2 Sat by Pulse Oximetry Oxygen Delivery Method Nasal Cannula Oxygen Flow Rate 2 FIO2% 28 11/16/24 00:00 11/16/24 00:58 11/16/24 04:18 Temperature 97.7 F Pulse Rate 85 Pulse Rate [Brachial] Respiratory Rate 24 34 H Blood Pressure 180/81 179/80 Blood Pressure [Left Arm] O2 Sat by Pulse Oximetry 96 Oxygen Delivery Method Nasal Cannula Oxygen Flow Rate 2 FIO2% 11/16/24 04:00 11/16/24 05:18 11/16/24 07:00 Temperature 98.0 F Pulse Rate 91 H Pulse Rate [Brachial] Respiratory Rate 16 16 Blood Pressure 172/75 Blood Pressure [Left Arm] O2 Sat by Pulse Oximetry 96 Oxygen Delivery Method Nasal Cannula Nasal Cannula Oxygen Flow Rate 2 2 FIO2% 11/16/24 08:00 11/16/24 08:57 11/16/24 08:56 Temperature 97.4 F L Pulse Rate 94 H 102 H Pulse Rate [Brachial] Respiratory Rate 23 27 H Blood Pressure Blood Pressure [Left Arm] O2 Sat by Pulse Oximetry 97 95 Oxygen Delivery Method Nasal Cannula Oxygen Flow Rate 2 FIO2% 28 11/16/24 08:56 11/16/24 09:01 11/16/24 10:00 Temperature Pulse Rate 104 H Pulse Rate [Brachial] Respiratory Rate 23 Blood Pressure 190/81 186/81 140/63 Blood Pressure [Left Arm] O2 Sat by Pulse Oximetry 98 Oxygen Delivery Method Nasal Cannula Oxygen Flow Rate 2 FIO2% 11/16/24 09:43 11/16/24 10:03 11/16/24 09:59 Temperature Pulse Rate 105 H Pulse Rate [Brachial] Respiratory Rate 23 Blood Pressure 105/54 140/63 Blood Pressure [Left Arm] O2 Sat by Pulse Oximetry 85 L Oxygen Delivery Method Oxygen Flow Rate FIO2% 11/16/24 09:59 11/16/24 11:03 11/16/24 11:41 Temperature 98 F Pulse Rate 86 81 Pulse Rate [Brachial] Respiratory Rate 20 18 28 H Blood Pressure 158/76 Blood Pressure [Left Arm] O2 Sat by Pulse Oximetry 98 100 Oxygen Delivery Method Oxygen Flow Rate FIO2% 11/16/24 12:00 11/16/24 13:58 11/16/24 14:58 Temperature Pulse Rate 75 Pulse Rate [Brachial] Respiratory Rate 19 19 19 Blood Pressure Blood Pressure [Left Arm] O2 Sat by Pulse Oximetry 100 Oxygen Delivery Method Oxygen Flow Rate FIO2% 11/16/24 16:42 11/16/24 19:17 11/16/24 19:00 Temperature 97.5 F L Pulse Rate 89 Pulse Rate [Brachial] Respiratory Rate 14 16 Blood Pressure 172/76 Blood Pressure [Left Arm] O2 Sat by Pulse Oximetry 99 Oxygen Delivery Method Nasal Cannula Oxygen Flow Rate 2 FIO2% 11/16/24 20:00 11/16/24 20:00 11/16/24 20:21 Temperature 98.2 F Pulse Rate 86 Pulse Rate [Brachial] Respiratory Rate 22 Blood Pressure 155/67 Blood Pressure [Left Arm] O2 Sat by Pulse Oximetry 99 Oxygen Delivery Method Nasal Cannula Oxygen Flow Rate 2 FIO2% 28 11/16/24 20:17 11/16/24 22:00 11/16/24 22:00 Temperature Pulse Rate 85 Pulse Rate [Brachial] Respiratory Rate 18 20 Blood Pressure 157/67 Blood Pressure [Left Arm] O2 Sat by Pulse Oximetry 99 Oxygen Delivery Method Oxygen Flow Rate FIO2% 11/17/24 00:00 11/17/24 00:00 11/17/24 02:41 Temperature 99.3 F Pulse Rate 73 Pulse Rate [Brachial] Respiratory Rate 21 18 Blood Pressure 160/72 Blood Pressure [Left Arm] O2 Sat by Pulse Oximetry Oxygen Delivery Method Oxygen Flow Rate FIO2% 11/17/24 04:05 11/17/24 04:00 11/17/24 04:01 Temperature 99.0 F Pulse Rate 96 H Pulse Rate [Brachial] Respiratory Rate 26 H Blood Pressure 160/78 177/80 Blood Pressure [Left Arm] O2 Sat by Pulse Oximetry Oxygen Delivery Method Oxygen Flow Rate FIO2% 11/17/24 03:41 11/17/24 07:00 11/17/24 06:00 Temperature Pulse Rate 83 Pulse Rate [Brachial] Respiratory Rate 18 15 Blood Pressure Blood Pressure [Left Arm] O2 Sat by Pulse Oximetry Oxygen Delivery Method Nasal Cannula Oxygen Flow Rate 2 FIO2% 11/17/24 08:00 11/17/24 08:27 11/17/24 08:37 Temperature 98.8 F Pulse Rate 91 H 99 H Pulse Rate [Brachial] Respiratory Rate 14 18 18 Blood Pressure 187/82 155/65 Blood Pressure [Left Arm] O2 Sat by Pulse Oximetry 96 Oxygen Delivery Method Oxygen Flow Rate FIO2% 11/17/24 09:27 11/17/24 09:38 Temperature Pulse Rate Pulse Rate [Brachial] Respiratory Rate 20 Blood Pressure Blood Pressure [Left Arm] O2 Sat by Pulse Oximetry Oxygen Delivery Method Nasal Cannula Oxygen Flow Rate 2 FIO2% 28 Labs: Laboratory Last Values WBC 13.6 X10^3/uL (3.6-10.0) H 11/17/24 04:25 RBC 3.51 X10^6/uL (4.7-6.0) L 11/17/24 04:25 Hgb 9.2 g/dL (13.5-18.0) L 11/17/24 04:25 Hct 28.5 % (42.0-54.0) L 11/17/24 04:25 MCV 81.1 fL (80.0-100.0) 11/17/24 04:25 MCH 26.1 pg (27.0-34.0) L 11/17/24 04:25 MCHC 32.1 g/dL (33.0-35.0) L 11/17/24 04:25 RDW 18.5 % (11.6-16.5) H 11/17/24 04:25 Plt Count 430 X10^3/uL (150.0-450.0) 11/17/24 04:25 Plt Count Comment Adequate (ADEQUATE) 11/09/24 04:35 MPV 9.4 fL (7.4-11.0) 11/17/24 04:25 Neut % (Auto) 79.5 % (42.0-75.0) H 11/17/24 04:25 Lymph % (Auto) 10.1 % (21.0-51.0) L 11/17/24 04:25 Logan % (Auto) 8.6 % (0.0-13.0) 11/17/24 04:25 Eos % (Auto) 1.1 % (0.9-2.9) 11/17/24 04:25 Baso % (Auto) 0.7 % (0.2-1.0) 11/17/24 04:25 Neut # (Auto) 10.9 x10^3/uL (2.2-4.8) H 11/17/24 04:25 Lymph # (Auto) 1.4 X10^3/uL (1.3-2.9) 11/17/24 04:25 Logan # (Auto) 1.2 x10^3/uL (0.3-0.8) H 11/17/24 04:25 Eos # (Auto) 0.1 x10^3/uL (0.0-0.2) 11/17/24 04:25 Baso # (Auto) 0.1 X10^3/uL (0.0-0.1) 11/17/24 04:25 Absolute Nucleated RBC 0.0 /100WBC 11/17/24 04:25 Total Counted 100 11/09/24 04:35 Neutrophils % (Manual) 87 % (39-76) H 11/09/24 04:35 Band Neutrophils % 4 % (0-10) 11/09/24 04:35 Lymphocytes % (Manual) 3 % (13-43) L 11/09/24 04:35 Monocytes % (Manual) 6 % (4-9) 11/09/24 04:35 Plt Morphology Comment Normal (NORMAL) 11/09/24 04:35 RBC Morphology Abnormal (NORMAL) 11/09/24 04:35 Hypochromasia Slight A 11/09/24 04:35 Anisocytosis Slight A 11/09/24 04:35 Sodium 142 mmol/L (136-145) 11/17/24 04:25 Corrected Sodium 144 mmol/L (136-145) 11/17/24 04:25 Potassium 3.6 mmol/L (3.5-5.1) 11/17/24 04:25 Chloride 99 mmol/L (98-107) 11/17/24 04:25 Carbon Dioxide 33.2 mmol/L (21-32) H 11/17/24 04:25 BUN 5 mg/dL (7-18) L 11/17/24 04:25 Creatinine 0.74 mg/dL (0.70-1.30) 11/17/24 04:25 Est GFR (MDRD) Af Amer > 60 (>60) 11/17/24 04:25 Est GFR (MDRD) Non-Af > 60 (>60) 11/17/24 04:25 Glucose 184 mg/dL (65-99) H 11/17/24 04:25 Calcium 8.6 mg/dL (8.5-10.1) 11/17/24 04:25 Corrected Calcium 10.4 mg/dL (8.5-10.1) H 11/17/24 04:25 Magnesium 1.7 mg/dL (2.0-2.9) L 11/17/24 04:25 Total Bilirubin 0.40 mg/dL (0.2-1.0) 11/17/24 04:25 AST 126 Units/L (15-37) H 11/17/24 04:25 ALT 45 Units/L (12-78) 11/17/24 04:25 Alkaline Phosphatase 78 Units/L (46-116) 11/17/24 04:25 Total Protein 6.2 g/dL (6.4-8.2) L 11/17/24 04:25 Albumin 1.8 g/dL (3.4-5.0) L 11/17/24 04:25 Globulin 4.4 g/dL (2.5-4.5) 11/17/24 04:25 Albumin/Globulin Ratio 0.4 Ratio (1.1-2.1) L 11/17/24 04:25 Tissue Pathology See comment. 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 Pt is to keep follow up appointment as instructed and take medications as ordered. Discharge Medications Discharge Medications: metformin Allergy (Verified 07/31/18 14:33) New Prescriptions nicotine 21 mg/24 hr daily transdermal patch 1 patch transdermal Q24H #20 ea 11/16/24 [Rx] aspirin 81 mg po daily Percocet 5 mg , 1 po q 6 Hr prn pain. Discharge Disposition Assessment: see hospital course Discharge Plan Discharge Plan Hospital Course: This is a 69-year-old male who had had stenting of the right iliac artery approximately 2 years previously but he never came back to see me in follow-up. He continued to smoke and did not take his blood thinners as prescribed. He presented with acutely ischemic right leg and underwent thrombolysis of this the week before with good resolution and was brought back for ultimate intervention of the right leg. On November 08 he was taken to the operative suite where he underwent a drug-coated balloon angioplasty right superficial artery and angioplasty of the right anterior tibial artery. He also had right common femoral enterectomy and patch angioplasty for near occlusive ad severe disease of the right common femoral artery . His foot had already had gangrenous changes of the fourth and fifth toes and that continued to progress. He was taken back to the operating suite on 11/10/2024 and underwent multiple stents placed in the right the superficial artery as well as covered stents placed across the old enterectomy and patch angioplasty which not improve his flow and ultimately was taken to the operating suite on November 15 where he underwent a right below knee amputation. He has done well. Laboratory values have been stable. His pain is under control with p.o. pain medications and dressing remains intact. He [facility] be [facility] a [facility] facility and will continue to medications including Percocet 5 mg tablets every 6 hours PRN pain .He is also on 81 mg of aspirin daily. He will follow-up with me in 1 week. He may need arterial mention of the left leg in the future. Patient Disposition: SNF Condition: Stable Health Concerns: Post Hospitalization: new medications and changes needed to prevent readmission or further decline. Pt educated and given instructions on all concerns. Care Plan Goals: Problem: Pain/Alteration in Comfort Goal: Improve/ Resolve Pain; Achieve Pain Tolerance Instructions: Take pain medications as prescribed. Contact your primary care provider if your pain is unrelieved or worsens. Follow up with primary care provider as directed. Plan of Treatment: Continue with present treatment and follow up plan. Pt is to keep follow up appointment as instructed and take medications as ordered. Assessment: see hospital course Prescription drug monitoring program results: PDMP reviewed with concerns identified Prescriptions: New nicotine 21 mg/24 hr Patch 24 Hour 1 patch TRANSDERMAL Q24H Qty: 20 0RF oxycodone-acetaminophen [Percocet] 5-325 mg tablet 1 tab PO Q6H MDD 4 PRNQty: 30 0RF Continued hydroxyzine HCl 50 mg Tablet 50 mg PO Q6H PRN atorvastatin 40 mg Tablet 40 mg PO HS buspirone 5 mg Tablet 5 mg PO BID trazodone 50 mg Tablet 50 mg PO HS tramadol 50 mg Tablet 100 mg PO BID PRN gabapentin 800 mg Tablet 800 mg PO TID losartan 25 mg Tablet 25 mg PO DAILY metoprolol tartrate 25 mg Tablet 25 mg PO BID zileuton 600 mg Tablet, Er Multiphase 12 Hr 2 tab PO BID Jardiance 10 mg Tablet 10 mg PO DAILY insulin degludec [Tresiba FlexTouch U-100] 100 unit/mL (3 mL) insulin pen 30 unit SUBCUT QDAY aspirin 81 mg capsule 81 mg PO QDAY Qty: 240 0RF Orders to Discharge Patient Discharge Orders: Discharge (Routine); Ordered 11/17/24 Ordered By: José Rutledge Follow ups/Referrals Follow ups/Referrals: José Rutledge [STAFF PHYSICIAN] - 11/23/24 11:30 am Instructions Instructions: Endovascular Therapy for Peripheral Vascular Disease: What to Know After Stand Alone Forms: Excuse From Work or School, Find Help Web Site, Post Hospital Follow Up Care
[2024-11-17 12:16] VITALS: TEMP 97.4; O2SAT 100
[2024-11-17 12:20] VITALS: BP 166/76; PULSE 88
[2024-11-17 13:55] VITALS: RESP 17
== END 2024-11-17 15:58 ==
LOC: SURG1 10:27 → ICU 10:27
PROVIDERS: ADMIT Surgery; ATTEND Surgery
DX: E11.65 Type 2 diabetes mellitus with hyperglycemia; I25.89 Other forms of chronic ischemic heart disease; I10 Essential (primary) hypertension; R26.89 Other abnormalities of gait and mobility; I96 Gangrene, not elsewhere classified; E11.51 Type 2 diabetes mellitus with diabetic peripheral angiopathy without gangrene; Z99.81 Dependence on supplemental oxygen; I70.221 Atherosclerosis of native arteries of extremities with rest pain, right leg; Z72.0 Tobacco use; T82.858A Stenosis of other vascular prosthetic devices, implants and grafts, initial encounter; J44.9 Chronic obstructive pulmonary disease, unspecified; Z86.73 Personal history of transient ischemic attack (TIA), and cerebral infarction without residual deficits